=== PATIENT | female | born 1985 | race African-American/Black ===

== ENCOUNTER 2016-07-17 09:16 | Emergency (ER) | payer MEDICAID ==
[~2016-07-17] VITALS: Ht 160 cm; Wt 67.0 kg
[~2016-07-17 09:16] MED LIST: OXYC1SOL5 PO
[2016-07-17 09:18] VITALS: BP 114/67; PULSE 102; RESP 20; TEMP 97.8; O2SAT 97
--- NOTE | 2016-07-17 10:34 | PD ---
HPI Chief Complaint: Record Filing Clerk Problem/Complaint Time Seen by Provider: 10:06 Travel History International Travel<30 days: No Contact w/Intl Traveler<30days: No Traveled to known affect area: No History of Present Illness HPI Healthy 31-year-old female here with complaint of vaginal discharge. For the last week patient has had increasing vaginal discharge with a slight amount of discomfort within the pelvis. She denies any urinary symptoms. No new sexual partners or high-risk sexual behavior. History of remote chlamydia, treated. She had a child vaginally delivered 5 months ago. Her menses are regular and she attributes this to Implanon. She has not taken any tests at home but does not believe she could be . PFSH Past Medical History Asthma: No Blood Disorders: No Anxiety: No Depression: No Heart Rhythm Problems: No Cancer: No Cardiovascular Problems: No High Cholesterol: No Chemotherapy: No Chest Pain: No Congestive Heart Failure: No COPD: No Diabetes: No Diminished Hearing: No Endocrine: No Gastrointestinal Disorders: Yes (HYPEREMESIS GRAVIDARUM) Genitourinary: No Hypertension: No Immune Disorder: No Implanted Vascular Access Dvce: No Musculoskeletal: Yes (SCOLIOSIS) Neurologic: No Psychiatric: No Reproductive: Yes (PID) Respiratory: No Immunizations Current: No Radiation Therapy: No Sleep Apnea: No Thyroid Disease: No Tetanus Vaccination: < 5 Years Influenza Vaccination: No ?: Not LMP: 07/03/16 Menopausal: No : 5 Para: 5 Miscarriage: 0 : 0 Past Surgical History Surgical History: No Previous Surgery Other Surgery: No Social History Alcohol Use: No Tobacco Use: Yes (1 pack per week) Substance Use: No Allergies-Medications (Allergen,Severity, Reaction): Coded Allergies: Penicillin (Verified Allergy, Severe, A CHILD, 07/17/16) Reported Meds & Prescriptions Reported Meds & Active Scripts Active No Active Prescriptions or Reported Medications Review of Systems Except as stated in HPI: all other systems reviewed are Neg Physical Exam Narrative GENERAL: Well-appearing female in no acute distress SKIN: Warm and dry. HEAD: Normocephalic. EYES: No scleral icterus. No injection or drainage. ENT: Mucous membranes pink and moist. NECK: Supple CARDIOVASCULAR: Regular rate and rhythm. RESPIRATORY: No accessory muscle use. GASTROINTESTINAL: Abdomen soft, non-tender, nondistended. GENITOURINARY: Normal external female genitalia. Speculum examination reveals physiologic appearing discharge without cervical erythema, no tenderness to palpation on bimanual exam MUSCULOSKELETAL: Normal gait NEUROLOGICAL: Awake and alert. Normal speech. PSYCHIATRIC: Appropriate mood and affect; insight and judgment normal. Data Data Last Documented VS Vital Signs Date Time Temp Pulse Resp B/P Pulse Ox O2 Delivery O2 Flow Rate FiO2 07/17/16 10:07 65 16 07/17/16 09:18 97.8 114/67 97 Room Air Orders Gc And Chlamydia Pcr (07/17/16 10:06) Wet Prep Profile (07/17/16 10:06) Urinalysis - C+S If Indicated (07/17/16 10:06) Ed Urine Pregnancytest Poc (07/17/16 10:06) Labs Laboratory Tests Test 07/17/16 10:22 Urine Color YELLOW Urine Turbidity HAZY Urine pH 5.5 Urine Specific [place] 1.020 Urine Protein NEG mg/dL Urine Glucose (UA) NEG mg/dL Urine Ketones NEG mg/dL Urine Occult Blood NEG Urine Nitrite NEG Urine Bilirubin NEG Urine Urobilinogen LESS THAN 2.0 MG/DL Urine Leukocyte Esterase TRACE Urine RBC LESS THAN 1 /hpf Urine WBC 1 /hpf Urine Squamous Epithelial 3 /hpf Cells Urine Bacteria RARE /hpf Urine Mucus FEW /lpf Microscopic Urinalysis Comment CULT NOT INDICATED Clue Cells (Wet Prep) PRESENT Vaginal Trichomonas (Wet Prep) NONE SEEN Vaginal Yeast (Wet Prep) NONE SEEN MDM Medical Decision Making Medical Screen Exam Complete: Yes Emergency Medical Condition: Yes Medical Record Reviewed: Yes Differential Diagnosis 31-year-old female here with one week of increasing vaginal discharge and pelvic discomfort. Differential includes UTI, , ectopic , Effexor transmitted infection, PID. Narrative Course Urine test was negative. GC and Chlamydia were sent but I would not empirically treat patient based on her symptoms and exam. Urinalysis, wet prep notable for bacterial vaginosis. Diagnosis Primary Impression: Bacterial vaginosis Referrals: Information Security Architect as needed Additional Instructions: Antibiotics as prescribed. Med/Other Pt SpecificInfo: Prescription(s) given Scripts Metronidazole (Flagyl)500 Mg [id number] Mg PO TID 7 Days Ref 0 Prov:China Dallas MD 07/17/16 Disposition: 01 DISCHARGE HOME Condition: Stable China Dallas MD Jul 17, 2016 10:34
[2016-07-17 10:54] LABS: BACTERIA, URINE RARE /hpf; BLOOD, URINE NEG (NEG); COMMENT (UR) CULT NOT INDICATED; CULTURE IF INDICATED CULT NOT INDICATED; GLUCOSE,URINE NEG (NEG); KETONE, URINE NEG (NEG); MUCUS URINE FEW /lpf (OCC); NITRITE,URINE NEG (NEG); PH, URINE 5.5 (5.0-8.5); SQUAMOUS EPITHELIAL CELL URINE 3 /hpf (0-5); URINE COLOR YELLOW (YELLW/STRAW)
[2016-07-17] MEDS ORDERED: METR-1 PO (11:21)
[2016-07-17 13:43] LABS: CHLAMYDIA PCR NOT DETECTED (NOT DETECT); NEISSERIA PCR NOT DETECTED (NOT DETECT)
== END 2016-07-17 12:04 | disposition home or self-care (01) ==
LOC: NEPA 09:16
DX: N76.0 Acute vaginitis (principal); R10.2 Pelvic and perineal pain; Z72.0 Tobacco use; Z87.39 Personal history of other diseases of the musculoskeletal system and connective tissue; Z87.42 Personal history of other diseases of the female genital tract
CPT/HCPCS: 81001; 84703; 87210; 87491; 87591; 99283

== ENCOUNTER 2016-09-19 01:18 | Emergency (ER) | payer MEDICAID ==
[~2016-09-19] VITALS: Ht 172.7 cm; Wt 60.0 kg
[~2016-09-19 01:18] MED LIST changes: +METR-1 PO; -OXYC1SOL5 PO
[2016-09-19 01:20] VITALS: BP 115/72; PULSE 97; RESP 16; TEMP 97.7; O2SAT 100
[2016-09-19] MEDS ORDERED: ORPHENADRINE INJ 60 MG/2 ML AMP IM ONE (01:30)
[2016-09-19] MEDS ORDERED: KETOROLAC TROMETHAMINE 60 MG/2 ML (IM) VIAL IM ONE (01:30)
[2016-09-19] MEDS ORDERED: ROBA500T PO (01:36)
[2016-09-19] MEDS ORDERED: IBUP-232 PO (01:36)
--- NOTE | 2016-09-19 01:36 | PD ---
HPI Chief Complaint: Injury Time Seen by Provider: 04:09 Travel History International Travel<30 days: No Contact w/Intl Traveler<30days: No Traveled to known affect area: No History of Present Illness HPI 31 year-old female no significant medical history presents to the emergency department for evaluation of right neck and shoulder pain after helping her boyfriend move a dryer yesterday. Pain is a constant, tight, ache. It is a 6 out of 10. Patient denies any injury. She did not fall. She denies focal deficits or weakness. Has not taken anything for her pain. She has no other symptoms to report. PFS Past Medical History Medical History: Denies Significant Hx Asthma: No Blood Disorders: No Anxiety: No Depression: No Heart Rhythm Problems: No Cancer: No Cardiovascular Problems: No High Cholesterol: No Chemotherapy: No Chest Pain: No Congestive Heart Failure: No COPD: No Diabetes: No Diminished Hearing: No Endocrine: No Gastrointestinal Disorders: Yes (HYPEREMESIS GRAVIDARUM) Genitourinary: No Hypertension: No Immune Disorder: No Implanted Vascular Access Dvce: No Musculoskeletal: Yes (SCOLIOSIS) Neurologic: No Psychiatric: No Reproductive: Yes (PID) Respiratory: No Immunizations Current: No Radiation Therapy: No Sleep Apnea: No Thyroid Disease: No Menopausal: No : 5 Para: 5 Miscarriage: 0 : 0 Past Surgical History Other Surgery: No Social History Alcohol Use: No Tobacco Use: Yes (1 pack per week) Substance Use: No Allergies-Medications (Allergen,Severity, Reaction): Coded Allergies: Penicillin (Verified Allergy, Severe, A CHILD, 09/19/16) Reported Meds & Prescriptions Reported Meds & Active Scripts Active Robaxin (Methocarbamol) 500 Mg Tab 500 Mg PO QID PRN Ibuprofen 600 Mg Tab 600 Mg PO Q8HR PRN Flagyl (Metronidazole) 500 Mg Tab 500 Mg PO TID 7 Days Review of Systems Except as stated in HPI: all other systems reviewed are Neg Physical Exam Narrative GENERAL: Well-nourished, well-developed female patient, ambulatory no acute distress patient. SKIN: Focused skin assessment warm/dry. HEAD: Normocephalic. EYES: No scleral icterus. No injection or drainage. NECK: Supple, trachea midline. No JVD or lymphadenopathy. No cervical spine tenderness. Tenderness elicited to palpation along the right trapezius musculature. CARDIOVASCULAR: Regular rate and rhythm without murmurs, gallops, or rubs. RESPIRATORY: Breath sounds equal bilaterally. No accessory muscle use. GASTROINTESTINAL: Abdomen soft, non-tender, nondistended. MUSCULOSKELETAL: No cyanosis, or edema. BACK: Nontender without obvious deformity. No CVA tenderness. Data Data Last Documented VS Vital Signs Date Time Temp Pulse Resp B/P Pulse Ox O2 Delivery O2 Flow Rate FiO2 09/19/16 01:20 97.7 97 16 115/72 100 Room Air Orders Ketorolac Inj (Toradol Inj) (09/19/16 01:30) Orphenadrine Inj (Norflex Inj) (09/19/16 01:30) Ibuprofen (Motrin) (09/19/16 01:45) Methocarbamol (Robaxin) (09/19/16 01:45) MDM Medical Decision Making Medical Screen Exam Complete: Yes Emergency Medical Condition: Yes Medical Record Reviewed: Yes Differential Diagnosis Muscle strain versus spasm versus discogenic pain versus radiculopathy Narrative Course 31 year-old female presents to emergency department for evaluation. Patient's history and physical are consistent with a muscle strain. She is counseled on care. She is encouraged to follow-up with the primary care provider and return immediately with any acute worsening of symptoms. Diagnosis Primary Impression: Muscle strain of scapular region Qualified Code: S46.911A - Muscle strain of scapular region, right, initial encounter Additional Impression: Cervical muscle strain Qualified Code: S16.1XXA - Cervical muscle strain, initial encounter Referrals: Primary Care Physician Patient Instructions: General Instructions, Muscle Strain (DC) Departure Forms: Tests/Procedures, Work Release Enter return to work date: September 21, 2016 Additional Instructions: Ice and/or warm moist heat may help to alleviate symptoms Follow-up with your primary care provider Return immediately with any acute worsening of symptoms Med/Other Pt SpecificInfo: Prescription(s) given Scripts Methocarbamol (Robaxin)500 Mg [id number] Mg PO QID PRN (MUSCLE SPASM) #20 TAB Ref 0 Prov:Melina Love 09/19/16 Ibuprofen 600 Mg [id number] Mg PO Q8HR PRN (PAIN) #30 TAB Ref 0 Prov:Melina Love 09/19/16 Disposition: 01 DISCHARGE HOME Condition: Stable Melina Love September 19, 2016 01:36
[2016-09-19] MEDS ORDERED: IBUPROFEN 800 MG TAB PO ONE (01:45)
[2016-09-19] MEDS ORDERED: METHOCARBAMOL 500 MG TAB PO ONE (01:45)
== END 2016-09-19 04:54 | disposition home or self-care (01) ==
LOC: NEPK 01:18
DX: S46.911A Strain of unspecified muscle, fascia and tendon at shoulder and upper arm level, right arm, initial encounter (principal); S16.1XXA Strain of muscle, fascia and tendon at neck level, initial encounter; X50.0XXA Overexertion from strenuous movement or load, initial encounter; Y93.9 Activity, unspecified; Y92.9 Unspecified place or not applicable; Y99.9 Unspecified external cause status
CPT/HCPCS: 99282

== ENCOUNTER 2017-05-22 21:04 | Emergency (ER) | payer MEDICAID ==
[~2017-05-22 21:04] MED LIST changes: +IBUP-232 PO; +ROBA500T PO
[2017-05-22 21:05] VITALS: BP 126/77; PULSE 116; RESP 16; TEMP 99.1; O2SAT 99
[2017-05-22] MEDS ORDERED: BUPIVACAINE/EPINEPHRINE 0.5% PF 10 ML VIAL EPIDURAL ONE (22:00)
[2017-05-22] MEDS ORDERED: CLINDAMYCIN 150 MG CAP PO ONE (22:00)
--- NOTE | 2017-05-22 22:06 | PD ---
HPI Chief Complaint: Oral / Dental Pain or Problem Time Seen by Provider: 21:53 Travel History International Travel<30 days: No Contact w/Intl Traveler<30days: No Traveled to known affect area: No History of Present Illness HPI 32-year-old black female presents to emergency department with complaints of dental pain. She states that over last 24 hours she's had increasing pain and swelling to her left upper maxilla in an area which she had a tooth decay and break off. Symptoms are moderate. No alleviating factors. Exacerbated by palpation showing PFSH Past Medical History Asthma: No Blood Disorders: No Anxiety: No Depression: No Heart Rhythm Problems: No Cancer: No Cardiovascular Problems: No High Cholesterol: No Chemotherapy: No Chest Pain: No Congestive Heart Failure: No COPD: No Diabetes: No Diminished Hearing: No Endocrine: No Gastrointestinal Disorders: Yes (HYPEREMESIS GRAVIDARUM) Genitourinary: No Hypertension: No Immune Disorder: No Implanted Vascular Access Dvce: No Musculoskeletal: Yes (SCOLIOSIS) Neurologic: No Psychiatric: No Reproductive: Yes (PID) Respiratory: No Immunizations Current: No Radiation Therapy: No Sleep Apnea: No Thyroid Disease: No ?: Not LMP: currently on cycle Menopausal: No : 5 Para: 5 Miscarriage: 0 : 0 Past Surgical History Other Surgery: No Social History Alcohol Use: No Tobacco Use: Yes (1 pack per week) Substance Use: No Allergies-Medications (Allergen,Severity, Reaction): Coded Allergies: penicillin G (Unverified Allergy, Severe, A CHILD, 12/26/16) Reported Meds & Prescriptions Reported Meds & Active Scripts Active Robaxin (Methocarbamol) 500 Mg Tab 500 Mg PO QID PRN Ibuprofen 600 Mg Tab 600 Mg PO Q8HR PRN Flagyl (Metronidazole) 500 Mg Tab 500 Mg PO TID 7 Days Review of Systems General / Constitutional: No: Fever Eyes: No: Visual changes HENT: Positive: Dental Difficulties, No: Headaches, Gingival Bleeding, Ear Discharge, Earache Cardiovascular: No: Chest Pain or Discomfort Respiratory: No: Shortness of Breath Gastrointestinal: No: Abdominal Pain Genitourinary: No: Dysuria Musculoskeletal: No: Pain Skin: No Rash Neurologic: No: Weakness Psychiatric: No: Depression Endocrine: No: Polydipsia Hematologic/Lymphatic: No: Easy Bruising Physical Exam Narrative GENERAL: Well-developed, well-nourished in no acute distress. Nontoxic appearing. HEAD: Normocephalic, atraumatic. EYES: Pupils equal round and reactive. Extraocular motions intact. No scleral icterus. No injection or drainage. ENT: TMs clear without erythema. The external auditory canals clear. Nose: clear . Posterior pharynx is pink and moist. No tonsillar edema or exudate. Uvula midline. Airway patent. Tooth #13 is decayed to the gumline. There is a developing apical abscess noted on the buccal mucosa. NECK: Trachea midline.Supple, nontender, moves head freely. No central bony tenderness or spasm. CARDIOVASCULAR: Regular rate and rhythm without murmurs, gallops, or rubs. RESPIRATORY: Clear to auscultation. Breath sounds equal bilaterally. No wheezes , rales, or rhonchi. GASTROINTESTINAL: Abdomen soft, non-tender, nondistended. No hepato-splenomegaly , or palpable masses. No guarding. EXTREMITIES: No clubbing, cyanosis, or edema. No joint tenderness, effusion, or edema noted. BACK: Nontender without deformity or crepitance. No flank tenderness. Data Data Last Documented VS Vital Signs Date Time Temp Pulse Resp B/P (MAP) Pulse Ox O2 Delivery O2 Flow Rate FiO2 05/22/17 21:05 99.1 116 16 126/77 (93) 99 Orders Orders Clindamycin (Cleocin) (05/22/17 22:00) Bupivacaine-Epi Pf 0.5% Inj (Sensorcaine (05/22/17 22:00) MDM Medical Decision Making Medical Screen Exam Complete: Yes Emergency Medical Condition: Yes Medical Record Reviewed: Yes Differential Diagnosis MDM: Moderate Differential diagnoses: Dental abscess, dental caries, osteitis, cellulitis Narrative Course Patient is given clindamycin 300 mg by mouth and a dental block with 0.5% Marcaine with epinephrine Diagnosis Primary Impression: Dental abscess Patient Instructions: General Instructions Additional Instructions: Rest. [place] gargles. [place] oil on cotton balls. Clindamycin and Lortab. 3 Advil every 6 hours. follow-up with a dentist as soon as possible. And return to the ER if any problems. Med/Other Pt SpecificInfo: Prescription(s) given Disposition: 01 DISCHARGE HOME Condition: Stable Poli Ho May 22, 2017 22:06
[2017-05-22] MEDS ORDERED: CLIN150 PO (22:08)
[2017-05-22] MEDS ORDERED: NORC5TAB PO (22:08)
[2017-05-22] MEDS ORDERED: BUPIVACAINE/EPINEPHRINE 0.5% PF 10 ML VIAL NERV BLOCK ONE (22:15)
== END 2017-05-22 23:26 | disposition home or self-care (01) ==
LOC: NEPK 21:04
DX: K02.9 Dental caries, unspecified (principal); K04.7 Periapical abscess without sinus; Z72.0 Tobacco use
CPT/HCPCS: 99283

== ENCOUNTER 2017-05-23 22:55 | Inpatient (IN) | payer MEDICAID ==
[~2017-05-23] VITALS: Ht 160 cm; Wt 73.0 kg
[~2017-05-23 22:55] MED LIST changes: +CLIN150 PO; +NORC5TAB PO
[2017-05-23 22:56] VITALS: BP 146/80; PULSE 118; RESP 16; TEMP 99.5; O2SAT 98
[2017-05-24 01:09] VITALS: PULSE 101; RESP 18; O2SAT 99
[2017-05-24] MEDS ORDERED: CLINDAMYCIN 600 MG/NS PREMIX 50 ML IV ONE (01:45)
[2017-05-24] MEDS ORDERED: DEXAMETHASONE SOD PHOS 20 MG/5 ML VIAL IV PUSH ONE (01:45)
[2017-05-24] MEDS ORDERED: SODIUM CHLOR 0.9% 1000 ML INJ 1,000 ML IV ONE (01:45)
--- NOTE | 2017-05-24 01:47 | PD ---
HPI Chief Complaint: Oral / Dental Pain or Problem Time Seen by Provider: 01:12 Travel History International Travel<30 days: No Contact w/Intl Traveler<30days: No Traveled to known affect area: No History of Present Illness HPI 32-year-old black female returns to the ER after being seen by me yesterday for dental abscess. She states that she is taking her clindamycin but she has had increasing pain and swelling of the left face. She denies any fever chills. No nausea vomiting. He states the pain is moderate . She was concerned regarding the increased swelling. She denies any difficulty swallowing. No shortness of breath or wheezing. No alleviating factors. PFSH Past Medical History Medical History: Denies Significant Hx Asthma: No Blood Disorders: No Anxiety: No Depression: No Heart Rhythm Problems: No Cancer: No Cardiovascular Problems: No High Cholesterol: No Chemotherapy: No Chest Pain: No Congestive Heart Failure: No COPD: No Diabetes: No Diminished Hearing: No Endocrine: No Gastrointestinal Disorders: Yes (HYPEREMESIS GRAVIDARUM) Genitourinary: No Hypertension: No Immune Disorder: No Implanted Vascular Access Dvce: No Musculoskeletal: Yes (SCOLIOSIS) Neurologic: No Psychiatric: No Reproductive: Yes (PID) Respiratory: No Immunizations Current: No Radiation Therapy: No Sleep Apnea: No Thyroid Disease: No ?: Not Menopausal: No : 5 Para: 5 Miscarriage: 0 : 0 Past Surgical History Surgical History: No Previous Surgery Other Surgery: No Social History Alcohol Use: No Tobacco Use: Yes (1 pack per week) Substance Use: No Allergies-Medications (Allergen,Severity, Reaction): Coded Allergies: penicillin G (Unverified Allergy, Severe, A CHILD, 05/24/17) Reported Meds & Prescriptions Reported Meds & Active Scripts Active [place] (Hydrocodone-Acetaminophen) 5 Mg-325 Mg Tab 1 Tab PO Q6H PRN Cleocin (Clindamycin HCl) 150 Mg Cap 300 Mg PO Q6H 10 Days Robaxin (Methocarbamol) 500 Mg Tab 500 Mg PO QID PRN Ibuprofen 600 Mg Tab 600 Mg PO Q8HR PRN Flagyl (Metronidazole) 500 Mg Tab 500 Mg PO TID 7 Days Review of Systems General / Constitutional: No: Fever Eyes: No: Visual changes HENT: Positive: Gingival Bleeding, Dental Difficulties, Earache, Other (left facial swelling), No: Headaches, Sore Throat, Neck Pain, Masses Cardiovascular: No: Chest Pain or Discomfort Respiratory: No: Shortness of Breath Gastrointestinal: No: Abdominal Pain Genitourinary: No: Dysuria Musculoskeletal: No: Pain Skin: No Rash Neurologic: No: Weakness Psychiatric: No: Depression Endocrine: No: Polydipsia Hematologic/Lymphatic: No: Easy Bruising Physical Exam Narrative GENERAL: Well-developed, well-nourished in no apparent distress. Nontoxic appearing. HEAD: Patient has swelling of the left cheek/maxilla and the area for dental abscess. EYES: Pupils equal round and reactive. Extraocular motions intact. No scleral icterus. No injection or drainage. ENT: Nose clear. Throat without erythema, tonsillar hypertrophy or exudate. Uvula midline. Airway patent. Patient has a dental abscess to tooth #13. She has gingival erythema, edema. NECK: Trachea midline. Supple, nontender, moves head freely. No central bony tenderness or spasm. CARDIOVASCULAR: Regular rate and rhythm without murmurs, gallops, or rubs. RESPIRATORY: Clear to auscultation. Breath sounds equal bilaterally. No wheezes , rales, or rhonchi. GASTROINTESTINAL: Abdomen soft, non-tender, nondistended. No hepato-splenomegaly , or palpable masses. No guarding. EXTREMITIES: No clubbing, cyanosis, or edema. No joint tenderness. BACK: Nontender without deformity. No flank tenderness. NEUROLOGICAL: Awake, alert and oriented x 3 .Cranial nerves grossly intact. Motor and sensory grossly within normal limits. Normal speech. Data Data Last Documented VS Vital Signs Date Time Temp Pulse Resp B/P (MAP) Pulse Ox O2 Delivery O2 Flow Rate FiO2 05/24/17 01:09 101 18 99 Room Air 05/23/17 22:56 99.5 Orders Orders Iv Access Insert/Monitor (05/24/17 01:34) Sodium Chlor 0.9% 1000 Ml Inj (Ns 1000 M (05/24/17 01:45) Clindamycin 600 Mg/Ns Premix (Cleocin 60 (05/24/17 01:45) Dexamethasone Inj (Decadron Inj) (05/24/17 01:45) Complete Blood Count With Diff (05/24/17 03:55) Basic Metabolic Panel (Bmp) (05/24/17 03:55) Oxycodone-Acetamin 5-325 Mg (Percocet (05/24/17 04:00) MDM Medical Decision Making Medical Screen Exam Complete: Yes Emergency Medical Condition: Yes Medical Record Reviewed: Yes Differential Diagnosis MDM: Moderate Differential diagnoses: Dental abscess, dental caries, osteitis, cellulitis Narrative Course Appears the patient developing some secondary facial cellulitis secondary to her dental abscess. IV access is obtained. She is given clindamycin 600 mg IV , normal saline 1 L bolus, and Decadron 10 mg IV. She is also given a second dental block with 0.5% Marcaine with epinephrine. I will perform a local IND in hopes to improve her abscess and facial cellulitis. Incision and drainage did not reveal any obvious abscess. The patient has moderate swelling of the left face consistent with facial cellulitis secondary to her dental abscess. I've discussed the case with who has agreed to admit the patient on observation status for IV antibiotics. Patient is given Percocet 5 mg by mouth for pain. This is dental abscess with facial cellulitis Procedures Procedure Narrative Incision and drainage dental abscess: Patient is given 0.5% Marcaine. A stab incision is made to the pupil mucosa of the tooth. A small amount of blood but no purulent drainage identified. Patient tolerated procedure well. Diagnosis Primary Impression: dental abscess with facial cellulitis Condition: Stable Poli Ho May 24, 2017 01:46
[2017-05-24] MEDS ORDERED: oxyCODONE/ACETAMINOPHEN 5 MG/325 MG TAB PO ONE (04:00)
[2017-05-24] MEDS ORDERED: MAGNESIUM HYDROXIDE SUSP 30 ML CUP PO PRN (04:45)
[2017-05-24] MEDS ORDERED: BISACODYL 10 MG SUPP RECTAL PRN (04:45)
[2017-05-24] MEDS ORDERED: NALOXONE HCL 0.4 MG/ML AMP IV PUSH PRN (04:45)
[2017-05-24] MEDS ORDERED: LACTULOSE SYRUP 20 GM/30 ML CUP PO PRN (04:45)
[2017-05-24] MEDS ORDERED: SODIUM CHLORIDE 0.9% FLUSH 10 ML FLUSH IV FLUSH PRN (04:45)
[2017-05-24] MEDS ORDERED: SENNOSIDES 8.6 MG TAB PO PRN (04:45)
[2017-05-24 04:46] LABS: AUTOMATED NEUTROPHIL # 4.7 TH/MM3 (1.8-7.7); BASOPHIL % 0.2 % (0.0-2.0); EOSINOPHIL % 0.3 % (0.0-4.0); HEMATOCRIT 24.5 % (35.0-46.0); HEMOGLOBIN 8.2 GM/DL (11.6-15.3); LYMPH % 9.4 % (9.0-44.0); LYMPHOCYTE # 0.5 TH/MM3 (1.0-4.8); MEAN CELL VOLUME 66.7 FL (80.0-100.0); MEAN CORPUSCULAR HEMOGLOBIN 22.3 PG (27.0-34.0); MEAN CORPUSCULAR HGB CONC 33.5 % (32.0-36.0); MEAN PLATELET VOLUME 6.9 FL (7.0-11.0); MONO % 6.3 % (0.0-8.0); MONOCYTE # 0.4 TH/MM3 (0-0.9); NEUT % 83.8 % (16.0-70.0); PLATELET COUNT 227 TH/MM3 (150-450); RED BLOOD COUNT 3.67 MIL/MM3 (4.00-5.30); RED CELL DISTRIBUTION WIDTH 16.3 % (11.6-17.2); WHITE BLOOD COUNT 5.6 TH/MM3 (4.0-11.0)
[2017-05-24 05:07] LABS: BICARBONATE 22.8 MEQ/L (21.0-32.0); CALCIUM 7.1 MG/DL (8.5-10.1); CREATININE 0.53 MG/DL (0.50-1.00)
[2017-05-24 05:56] LABS: TOTAL PROTEIN 6.5 GM/DL (6.4-8.2)
[2017-05-24 06:00] LABS: CALCIUM-PROTEIN CORRECTED 7.4 MG/DL (8.5-10.1)
[2017-05-24] MEDS ORDERED: POTASSIUM CHLORIDE 20 MEQ CONTROLLED RELEASE TAB PO ONE ×2 (06:00)
[2017-05-24] MEDS ORDERED: CALCIUM GLUCONATE INJ 1 GM in DEXTROSE 5% IN WATER 100ML INJ 100 ML IV ONE ×2 (06:00)
[2017-05-24] MEDS ORDERED: POTASSIUM CHLOR 20 MEQ PREMIX 100 ML IV ONE (06:00)
[2017-05-24 06:30] VITALS: BP 128/73; PULSE 106; RESP 18; O2SAT 100
[2017-05-24] MEDS ORDERED: CALCIUM CARBONATE 500 MG CHEWABLE TAB CHEW ONE (06:45)
[2017-05-24] MEDS: POTASSIUM CHLOR 20 MEQ PREMIX 100 ML IV SCH ×2 (08:03→10:09)
[2017-05-24] MEDS: DOCUSATE SODIUM 50 MG/SENNA 8.6 MG TAB PO SCH ×2 (09:00→20:38)
[2017-05-24] MEDS: ENOXAPARIN SODIUM 40 MG/0.4 ML SYRINGE SQ SCH (09:17)
[2017-05-24] MEDS: MORPHINE SULFATE 2 MG/ML INJ IV PRN ×4 (09:18→20:38)
[2017-05-24] MEDS ORDERED: CLINDAMYCIN 900 MG/DEX PREMIX 50 ML IV SCH (11:00)
[2017-05-24 12:15] VITALS: BP 118/71; PULSE 100; RESP 18; O2SAT 100
[2017-05-24] MEDS: SODIUM CHLORIDE 0.9% FLUSH 10 ML FLUSH IV FLUSH SCH ×2 (12:15→20:37)
--- NOTE | 2017-05-24 14:01 | HHI.HP ---
[facility] Service [facility] Primary Care Physician EBONI Caldwell Admission Diagnosis dental abscess with facial cellulitis Diagnoses: Chief Complaint: Left cheek swelling and pain Travel History International Travel<30 Days: No Contact w/Intl Traveler <30 Da: No Traveled to Known Affected Are: No History of Present Illness 5 years old female returned back to ED after she was seen yesterday for dental at patient was prescribed antibiotic however the swelling and the pain it still increasing without improvement. Patient has been taking clindamycin by mouth. I saw the patient she was resting in bed calmly stated pain medication is helping, she feels hungry she wants to eat, patient deniedH/ O dental cavities, she was in the process to see a dentist in the community clinic. Currently no chest anal fever chills no nausea vomiting abdominal pain diarrhea or constipation, also no difficulty swallowing Review of Systems All systems reviewed and was positive for what is mentioned in history of present illness otherwise negative Past Family Social History Past Medical History Hyperemesis gravidarum Scoliosis PID Past Surgical History No significant surgery reported Allergies: Coded Allergies: penicillin G (Unverified Allergy, Severe, A CHILD, 05/24/17) Family History Review with the patient,not aware of significant medical history runs in his family Social History Smoke few cigarettes a day no alcohol or illicit drug abuse Physical Exam Vital Signs Vital Signs Date Time Temp Pulse Resp B/P (MAP) Pulse Ox O2 Delivery O2 Flow Rate FiO2 05/24/17 12:25 18 05/24/17 12:15 100 18 118/71 (87) 100 Room Air 05/24/17 06:30 106 18 128/73 (91) 100 05/24/17 01:09 101 18 99 Room Air 05/23/17 22:56 99.5 118 16 146/80 (102) 98 Room Air Physical Exam GENERAL: This is a well-nourished, well-developed patient, in no apparent distress. SKIN: No rashes, ecchymoses or lesions. Cool and dry. HEAD: Atraumatic. Normocephalic. No temporal or scalp tenderness. EYES: Pupils equal round and reactive. Extraocular motions intact. No scleral icterus. No injection or drainage. ENT: Nose without bleeding, left cheek swelling and tenderness NECK: Trachea midline. No JVD or lymphadenopathy. Supple, nontender, no meningeal signs. CARDIOVASCULAR: Regular rate and rhythm without murmurs, gallops, or rubs. RESPIRATORY: Clear to auscultation. Breath sounds equal bilaterally. No wheezes , rales, or rhonchi. GASTROINTESTINAL: Abdomen soft, non-tender, nondistended. No hepato-splenomegaly , or palpable masses. No guarding. MUSCULOSKELETAL: Extremities without clubbing, cyanosis, or edema. No joint tenderness, effusion, or edema noted. No calf tenderness. Negative Homans sign bilaterally. NEUROLOGICAL: Awake and alert. Cranial nerves II through XII intact. Motor and sensory grossly within normal limits. Five out of 5 muscle strength in all muscle groups. Normal speech. Laboratory Laboratory Tests Test 05/24/17 04:10 White Blood Count 5.6 Red Blood Count 3.67 Hemoglobin 8.2 Hematocrit 24.5 Mean Corpuscular Volume 66.7 Mean Corpuscular Hemoglobin 22.3 Mean Corpuscular Hemoglobin Concent 33.5 Red Cell Distribution Width 16.3 Platelet Count 227 Mean Platelet Volume 6.9 Neutrophils (%) (Auto) 83.8 Lymphocytes (%) (Auto) 9.4 Monocytes (%) (Auto) 6.3 Eosinophils (%) (Auto) 0.3 Basophils (%) (Auto) 0.2 Neutrophils # (Auto) 4.7 Lymphocytes # (Auto) 0.5 Monocytes # (Auto) 0.4 Eosinophils # (Auto) 0.0 Basophils # (Auto) 0.0 CBC Comment DIFF FINAL Differential Comment Blood Urea Nitrogen 6 Creatinine 0.53 Random Glucose 91 Total Protein 6.5 Calcium Level 7.1 Sodium Level 139 Potassium Level 2.9 Chloride Level 108 Carbon Dioxide Level 22.8 Anion Gap 8 Estimat Glomerular Filtration Rate 164 Protein Corrected Calcium 7.4 Magnesium Level 1.3 Result Diagram: 05/24/1740905/24/17409 Caprini VTE Risk Assessment Caprini VTE Risk Assessment: Mod/High Risk (score >= 2) Caprini Risk Assessment Model Point Value = 1 Point Value = 2 Point Value = 3 Point Value = 5 Age 41-60 Minor surgery BMI > 25 kg/m2 Swollen legs Varicose veins or History of unexplained or recurrent spontaneous Oral contraceptives or hormone replacement Sepsis (< 1 month) Serious lung disease, including pneumonia (< 1 month) Abnormal pulmonary function Acute myocardial infarction Congestive heart failure (< 1 month) History of inflammatory bowel disease Medical patient at bed rest Age 61-74 Arthroscopic surgery Major open surgery (> 45 min) Laparoscopic surgery (> 45 min) Malignancy Confined to bed (> 72 hours) Immobilizing plaster cast Central venous access Age >= 75 History of VTE Family history of VTE Factor V Leiden Prothrombin [id number] Lupus anticoagulant Anticardiolipin antibodies Elevated serum homocysteine Heparin-induced thrombocytopenia Other congenital or acquired thrombophilia Stroke (< 1 month) Elective arthroplasty Hip, pelvis, or leg fracture Acute spinal cord injury (< 1 month) Prophylaxis Regimen Total Risk Factor Score Risk Level Prophylaxis Regimen 0-1 Low Early ambulation 2 Moderate Order ONE of the following: *Sequential Compression Device (SCD) *Heparin 5000 units SQ BID 3-4 Higher Order ONE of the following medications: *Heparin 5000 units SQ TID *Enoxaparin/Lovenox 40 mg SQ daily (WT < 150 kg, CrCl > 30 mL/min) *Enoxaparin/Lovenox 30 mg SQ daily (WT < 150 kg, CrCl > 10-29 mL/min) *Enoxaparin/Lovenox 30 mg SQ BID (WT < 150 kg, CrCl > 30 mL/min) AND/OR *Sequential Compression Device (SCD) 5 or more Highest Order ONE of the following medications: *Heparin 5000 units SQ TID (Preferred with Epidurals) *Enoxaparin/Lovenox 40 mg SQ daily (WT < 150 kg, CrCl > 30 mL/min) *Enoxaparin/Lovenox 30 mg SQ daily (WT < 150 kg, CrCl > 10-29 mL/min) *Enoxaparin/Lovenox 30 mg SQ BID (WT < 150 kg, CrCl > 30 mL/min) AND *Sequential Compression Device (SCD) Assessment and Plan Assessment and Plan 32 years old female admitted with Left dental abscess: Failed outpatient antibiotic, will place on clindamycin iv , monitor improvement, pain management, maxillofacial surgeon consulted however no one is available in-house, consider transferring to another facility if no improvement. Patient on renal, will give pure Diet with full liquid Discussed Condition With Patient Mireille Early MD May 24, 2017 14:01
[2017-05-24 16:24] VITALS: BP 118/73; PULSE 98; RESP 20; TEMP 99; O2SAT 100
[2017-05-24] MEDS: CLINDAMYCIN 900 MG/NS PREMIX 50 ML IV SCH ×2 (18:30→23:58)
[2017-05-24 20:34] VITALS: BP 119/73; PULSE 107; RESP 18; TEMP 98.2; O2SAT 100
[2017-05-24] MEDS: ACETAMINOPHEN/HYDROcodone 325 MG/7.5 MG TAB PO PRN (23:59)
[2017-05-25 00:26] VITALS: BP 103/58; PULSE 101; RESP 18; TEMP 98.6; O2SAT 99
[2017-05-25] MEDS: CLINDAMYCIN 900 MG/NS PREMIX 50 ML IV SCH ×3 (05:16→18:11)
[2017-05-25] MEDS: ACETAMINOPHEN/HYDROcodone 325 MG/7.5 MG TAB PO PRN ×2 (05:16→09:39)
[2017-05-25 05:40] VITALS: BP 108/59; PULSE 92; RESP 18; TEMP 98.3; O2SAT 100
[2017-05-25 08:16] VITALS: BP 111/57; PULSE 84; RESP 20; TEMP 98.6; O2SAT 96
[2017-05-25] MEDS ORDERED: METHOCARBAMOL 500 MG TAB PO PRN (08:45)
[2017-05-25] MEDS ORDERED: ACETAMINOPHEN/HYDROcodone 325 MG/10 MG TAB PO PRN (08:45)
[2017-05-25] MEDS: DOCUSATE SODIUM 50 MG/SENNA 8.6 MG TAB PO SCH ×2 (09:00→20:52)
[2017-05-25] MEDS: ENOXAPARIN SODIUM 40 MG/0.4 ML SYRINGE SQ SCH (09:40)
[2017-05-25] MEDS: SODIUM CHLORIDE 0.9% FLUSH 10 ML FLUSH IV FLUSH SCH ×2 (09:40→20:51)
[2017-05-25] MEDS ORDERED: PNEUMOCOCCAL POLYVALENT INJ 25 MCG/0.5 ML SYR IM ONE (10:00)
[2017-05-25] MEDS ORDERED: INFLUENZA VIRUS VACCINE (QUADRIVALENT) 0.5 ML SYR IM ONE (10:00)
[2017-05-25 11:48] VITALS: BP 110/66; PULSE 108; RESP 20; TEMP 98.7; O2SAT 100
[2017-05-25 11:56] LABS: AUTOMATED NEUTROPHIL # 5.1 TH/MM3 (1.8-7.7); BASOPHIL % 0.2 % (0.0-2.0); EOSINOPHIL % 0.3 % (0.0-4.0); HEMATOCRIT 28.4 % (35.0-46.0); HEMOGLOBIN 9.6 GM/DL (11.6-15.3); LYMPH % 13.7 % (9.0-44.0); LYMPHOCYTE # 0.9 TH/MM3 (1.0-4.8); MEAN CELL VOLUME 66.8 FL (80.0-100.0); MEAN CORPUSCULAR HEMOGLOBIN 22.5 PG (27.0-34.0); MEAN CORPUSCULAR HGB CONC 33.7 % (32.0-36.0); MEAN PLATELET VOLUME 6.6 FL (7.0-11.0); MONO % 7.5 % (0.0-8.0); MONOCYTE # 0.5 TH/MM3 (0-0.9); NEUT % 78.3 % (16.0-70.0); PLATELET COUNT 263 TH/MM3 (150-450); RED BLOOD COUNT 4.26 MIL/MM3 (4.00-5.30); RED CELL DISTRIBUTION WIDTH 16.7 % (11.6-17.2); WHITE BLOOD COUNT 6.5 TH/MM3 (4.0-11.0)
[2017-05-25 12:33] LABS: BICARBONATE 27.3 MEQ/L (21.0-32.0); CALCIUM 8.2 MG/DL (8.5-10.1); CREATININE 0.72 MG/DL (0.50-1.00); MAGNESIUM 1.6 MG/DL (1.5-2.5)
--- NOTE | 2017-05-25 12:35 | HHI.PR ---
Subjective Remarks Follow-up left facial swelling. States swelling has not improved in pain is not well controlled. Discussed with RN Objective Vitals Vital Signs Date Time Temp Pulse Resp B/P (MAP) Pulse Ox O2 Delivery O2 Flow Rate FiO2 05/25/17 11:48 98.7 108 20 110/66 (81) 100 05/25/17 08:16 98.6 84 20 111/57 (75) 96 05/25/17 05:40 98.3 92 18 108/59 (75) 100 05/25/17 00:26 98.6 101 18 103/58 (73) 99 05/24/17 20:34 98.2 107 18 119/73 (88) 100 05/24/17 16:24 99.0 98 20 118/73 (88) 100 05/24/17 15:04 (87) I/O 05/24/17 05/24/17 05/24/17 05/25/17 05/25/17 05/25/17 07:00 15:00 23:00 07:00 15:00 23:00 Intake Total 110 ml Balance 110 ml Intake IV Total 110 ml Result Diagram: 05/25/17 1140 05/24/17 0410 Objective Remarks GENERAL: This is a well-nourished, well-developed patient, in no apparent distress. SKIN: No rashes, ecchymoses or lesions. Cool and dry. HEAD: Atraumatic. Normocephalic. No temporal or scalp tenderness. EYES: Pupils equal round and reactive. Extraocular motions intact. No scleral icterus. No injection or drainage. ENT: Nose without bleeding, left cheek swelling and tenderness. Also tender left upper molar NECK: Trachea midline. No JVD or lymphadenopathy. Supple, nontender, no meningeal signs. CARDIOVASCULAR: Regular rate and rhythm without murmurs, gallops, or rubs. RESPIRATORY: Clear to auscultation. Breath sounds equal bilaterally. No wheezes , rales, or rhonchi. GASTROINTESTINAL: Abdomen soft, non-tender, nondistended.No guarding. MUSCULOSKELETAL: Extremities without clubbing, cyanosis, or edema. No joint tenderness, effusion, or edema noted. No calf tenderness. Negative Homans sign bilaterally. NEUROLOGICAL: Awake and alert. Cranial nerves II through XII intact. Motor and sensory grossly within normal limits. Five out of 5 muscle strength in all muscle groups. Normal speech. A/P Problem List: (1) Dental abscess ICD Code: K04.7 - Periapical abscess without sinus Status: Acute Assessment and Plan 32 years old female admitted with Left facial swelling. Imaging study shows likely bony infectious complication associated with posterior molar tooth of the left maxilla with small adjacent periosteal or subperiosteal fluid collection and surrounding cellulitic change. Continue IV clindamycin and pain management switched to Percocet and increase IV morphine for better control. Add IV steroids and ice. We'll discuss with OMFS since no one is steam conditioner operator today. Consider ID consult Hypokalemia and hypomagnesemia. Replace with 50 mEq potassium by mouth 2 and magnesium oxide 400 mg by mouth 1. Repeat BMP and mag in the morning Low risk for DVT Discharge Planning Not ready for discharge still requiring IV antibiotic and may need surgical intervention Bello Solis MD May 25, 2017 12:34
[2017-05-25] MEDS ORDERED: ACETAMINOPHEN 325 MG TAB PO PRN (12:45)
[2017-05-25] MEDS ORDERED: oxyCODONE/ACETAMINOPHEN 5 MG/325 MG TAB PO PRN (12:45)
[2017-05-25] MEDS ORDERED: NALOXONE HCL 0.4 MG/ML AMP IV PUSH PRN (12:45)
[2017-05-25] MEDS ORDERED: methylPREDNISolone SOD SUCC 125 MG/2 ML VIAL IV PUSH ONE (13:00)
[2017-05-25] MEDS: oxyCODONE/ACETAMINOPHEN 10 MG/325 MG TAB PO PRN ×2 (13:06→20:48)
[2017-05-25] MEDS ORDERED: MAGNESIUM OXIDE 400 MG TAB PO ONE (13:30)
[2017-05-25] MEDS ORDERED: MORPHINE SULFATE 2 MG/ML INJ IV PRN (14:15)
[2017-05-25] MEDS ORDERED: IOHEXOL 350 MG/ML 10 ML VIAL (for RAD DIAG) IVCONTRAST ONE (14:47)
--- NOTE | 2017-05-25 15:15 | RADRPT ---
EXAM DATE/TIME: 05/25/2017 14:30 [place] COMPARISON: No previous studies available for comparison. INDICATIONS : Dental abcess with facial swelling. IV CONTRAST: 70 cc Omnipaque 350 (iohexol) IV RADIATION DOSE: 56.76 CTDIvol (mGy) MEDICAL HISTORY : None SURGICAL HISTORY : None. ENCOUNTER: Initial ACUITY: 3 days PAIN SCALE: 1/10 LOCATION: Left facial TECHNIQUE: Volumetric scanning of the facial bones was performed. Using automated exposure control and adjustme nt of the mA and/or kV according to patient size, radiation dose was kept as low as reasonably achiev able to obtain optimal diagnostic quality images. DICOM format image data is available electronicall y for review and comparison. FINDINGS: There is bone loss surrounding the tooth roots of a posterior molar tooth of the left maxilla area ad jacent to the lateral cortex of the maxilla adjacent to this region, a thin crescentic area of low de nsity is present, surrounded by moderate enhancement and induration. The appearance of would be consi stent with small periosteal or subperiosteal fluid collection and surrounding cellulitis. There is no drainable fluid collection identified. There is a coastal thickening and fluid in the ipsilateral ma xillary antrum which may be associated with or sympathetic to the above-described process. The sinuse s or elsewhere clear and The bony elements are otherwise intact and unremarkable with no evidence of fracture or destructive c hange. CONCLUSION: Likely bony infectious complication associated with a posterior molar tooth of the left maxilla with small adjacent periosteal or subperiosteal fluid collection and surrounding cellulitic change as desc ribed above. Jaylan Mahajan MD on May 25, 2017 at 14:56 Board Certified Radiologist. This report was verified electronically.
[2017-05-25] MEDS: 1/2 NS + KCL 20 MEQ INJ 1,000 ML IV SCH (15:41)
[2017-05-25] MEDS: POTASSIUM CHLORIDE 25 MEQ EFFERVESCENT TAB PO SCH ×2 (15:42→20:49)
[2017-05-25 16:10] VITALS: BP 98/58; PULSE 105; RESP 20; TEMP 97.8; O2SAT 100
[2017-05-25 20:21] VITALS: BP 121/63; PULSE 111; RESP 18; TEMP 98.2; O2SAT 100
[2017-05-25] MEDS: methylPREDNISolone SOD SUCC 40 MG/1 ML VIAL IV PUSH SCH (20:50)
[2017-05-26] MEDS: CLINDAMYCIN 900 MG/NS PREMIX 50 ML IV SCH ×4 (00:36→18:16)
[2017-05-26 01:06] VITALS: BP 125/71; PULSE 91; RESP 18; TEMP 98.4; O2SAT 97
[2017-05-26] MEDS: oxyCODONE/ACETAMINOPHEN 10 MG/325 MG TAB PO PRN ×3 (03:45→19:06)
[2017-05-26 04:42] VITALS: BP 134/76; PULSE 82; RESP 18; TEMP 98.4; O2SAT 99
[2017-05-26] MEDS: methylPREDNISolone SOD SUCC 40 MG/1 ML VIAL IV PUSH SCH ×3 (05:37→22:45)
[2017-05-26 07:43] LABS: BICARBONATE 24.6 MEQ/L (21.0-32.0); CALCIUM 7.8 MG/DL (8.5-10.1); CREATININE 0.56 MG/DL (0.50-1.00); MAGNESIUM 1.7 MG/DL (1.5-2.5)
[2017-05-26] MEDS: POTASSIUM CHLORIDE 25 MEQ EFFERVESCENT TAB PO SCH ×2 (08:45→22:40)
[2017-05-26] MEDS: DOCUSATE SODIUM 50 MG/SENNA 8.6 MG TAB PO SCH ×2 (08:46→22:39)
[2017-05-26] MEDS: SODIUM CHLORIDE 0.9% FLUSH 10 ML FLUSH IV FLUSH SCH ×2 (08:46→22:45)
[2017-05-26 08:50] VITALS: BP 98/57; PULSE 85; RESP 18; TEMP 98.5; O2SAT 98
--- NOTE | 2017-05-26 11:17 | HHI.PR ---
Subjective Remarks Follow-up blood dental abscess. Improved swelling and pain. Tolerating by mouth. Objective Vitals Vital Signs Date Time Temp Pulse Resp B/P (MAP) Pulse Ox O2 Delivery O2 Flow Rate FiO2 05/26/17 08:50 98.5 85 18 98/57 (71) 98 05/26/17 04:42 98.4 82 18 134/76 (95) 99 05/26/17 01:06 98.4 91 18 125/71 (89) 97 05/25/17 20:21 98.2 111 18 121/63 (82) 100 05/25/17 16:10 97.8 105 20 98/58 (71) 100 05/25/17 11:48 98.7 108 20 110/66 (81) 100 I/O 05/25/17 05/25/17 05/25/17 05/26/17 05/26/17 05/26/17 07:00 15:00 23:00 07:00 15:00 23:00 Intake Total 1020 ml Balance 1020 ml Intake Oral 1020 ml # Voids 5 Result Diagram: 05/25/17 1140 05/26/17 0650 Imaging Last Impressions Maxillofacial CT 05/25/17 0000 Signed Impressions: Service Date/Time: Thursday, May 25, 2017 14:30 - CONCLUSION: Likely bony infectious complication associated with a posterior molar tooth of the left maxilla with small adjacent periosteal or subperiosteal fluid collection and surrounding cellulitic change as described above. Jaylan Mahajan MD Objective Remarks GENERAL: This is a well-nourished, well-developed patient, in no apparent distress. SKIN: No rashes, ecchymoses or lesions. Cool and dry. ENT: Nose without bleeding, left cheek with improving swelling and tenderness. Also tender left upper molar NECK: Trachea midline. No JVD or lymphadenopathy. Supple, nontender, no meningeal signs. CARDIOVASCULAR: Regular rate and rhythm without murmurs, gallops, or rubs. RESPIRATORY: Clear to auscultation. Breath sounds equal bilaterally. No wheezes , rales, or rhonchi. GASTROINTESTINAL: Abdomen soft, non-tender, nondistended.No guarding. MUSCULOSKELETAL: Extremities without clubbing, cyanosis, or edema. No joint tenderness, effusion, or edema noted. No calf tenderness. Negative Homans sign bilaterally. NEUROLOGICAL: Awake and alert. Cranial nerves II through XII intact. Motor and sensory grossly within normal limits. Five out of 5 muscle strength in all muscle groups. Normal speech. Procedures none A/P Problem List: (1) Dental abscess ICD Code: K04.7 - Periapical abscess without sinus Status: Acute Assessment and Plan 32 years old female admitted with Left facial swelling secondary to dental abscess with failed outpatient therapy. Imaging study shows likely bony infectious complication associated with posterior molar tooth of the left maxilla with small adjacent periosteal or subperiosteal fluid collection and surrounding cellulitic change. Improving. Continue IV clindamycin and pain management switched to Percocet and increase IV morphine for better control. Continue IV steroids and ice. Discussed with OMFS, once improved discharged home with antibiotic to have dental extraction outpatient. If worse transfer to another facility. Consider ID consult Hypokalemia and hypomagnesemia. Improved Hyperglycemia secondary to steroids. Monitor with ISS. Low risk for DVT Discharge Planning Not ready for discharge still requiring IV antibiotic and may need surgical intervention Bello Solis MD May 26, 2017 11:17
[2017-05-26] MEDS ORDERED: GLUCAGON 1 MG/ML VIAL OTHER PRN (11:30)
[2017-05-26] MEDS ORDERED: DEXTROSE 50% IN WATER 50 ML VIAL(D50) IV PUSH PRN (11:30)
[2017-05-26 12:00] VITALS: BP 114/62; PULSE 111; RESP 18; TEMP 98.5; O2SAT 100
[2017-05-26] MEDS: INSULIN ASPART SUPPLEMENTAL SCALE SQ SCH ×3 (12:00→21:00)
--- NOTE | 2017-05-26 13:48 | HHI.DCPOC ---
Discharge Care Plan Diagnosis: (1) Dental abscess Your Health Problems Are: Difficulty with ADL Exercise Tolerance Goals to Promote Your Health * To prevent worsening of your condition and complications * To maintain your health at the optimal level Directions to Meet Your Goals Take your medications as prescribed Follow your dietary instruction Follow activity as directed Keep your appointments as scheduled Take your immunizations and boosters as scheduled If your symptoms worsen call your PCP, if no PCP go to Urgent Care Center or Emergency Room Smoking is Dangerous to Your Health. Avoid second hand smoke Call the 24-hour hour crisis hotline for domestic abuse at Bello Solis MD May 26, 2017 13:48
[2017-05-26] MEDS: 1/2 NS + KCL 20 MEQ INJ 1,000 ML IV SCH (14:11)
[2017-05-26 16:00] VITALS: BP 121/69; PULSE 105; RESP 18; O2SAT 98
[2017-05-26] MEDS ORDERED: ONDANSETRON HCL 4 MG/2 ML VIAL IV PUSH PRN (16:00)
[2017-05-26 23:30] VITALS: BP 118/77; PULSE 100; RESP 16; TEMP 98.4; O2SAT 100
[2017-05-27] MEDS: CLINDAMYCIN 900 MG/NS PREMIX 50 ML IV SCH ×3 (00:18→12:00)
[2017-05-27] MEDS: oxyCODONE/ACETAMINOPHEN 10 MG/325 MG TAB PO PRN ×2 (01:32→07:16)
[2017-05-27] MEDS: methylPREDNISolone SOD SUCC 40 MG/1 ML VIAL IV PUSH SCH (05:00)
[2017-05-27] MEDS: INSULIN ASPART SUPPLEMENTAL SCALE SQ SCH ×2 (07:51→12:00)
[2017-05-27 08:00] VITALS: BP 117/69; PULSE 69; RESP 18; TEMP 98; O2SAT 98
[2017-05-27] MEDS: SODIUM CHLORIDE 0.9% FLUSH 10 ML FLUSH IV FLUSH SCH (09:00)
[2017-05-27] MEDS: DOCUSATE SODIUM 50 MG/SENNA 8.6 MG TAB PO SCH (09:00)
[2017-05-27] MEDS ORDERED: NORC5TAB PO (10:25)
--- NOTE | 2017-05-27 10:28 | HHI.DS ---
Discharge Summary Admission Date May 24, 2017 at 05:58 Discharge Date: May 27, 2017 Admitting Diagnosis dental abscess with facial cellulitis (1) Dental abscess ICD Code: K04.7 - Periapical abscess without sinus Diagnosis: Principal Status: Acute Procedures none Brief History - From Admission 5 years old female returned back to ED after she was seen yesterday for dental at patient was prescribed antibiotic however the swelling and the pain it still increasing without improvement. Patient has been taking clindamycin by mouth. I saw the patient she was resting in bed calmly stated pain medication is helping, she feels hungry she wants to eat, patient deniedH/ O dental cavities, she was in the process to see a dentist in the community clinic. Currently no chest anal fever chills no nausea vomiting abdominal pain diarrhea or constipation, also no difficulty swallowing CBC/BMP: 05/25/17 1140 05/26/17 0650 Significant Findings Laboratory Tests Test 05/25/17 11:40 05/26/17 06:50 Hemoglobin 9.6 GM/DL (11.6-15.3) Hematocrit 28.4 % (35.0-46.0) Mean Corpuscular Volume 66.8 FL (80.0-100.0) Mean Corpuscular Hemoglobin 22.5 PG (27.0-34.0) Mean Platelet Volume 6.6 FL (7.0-11.0) Neutrophils (%) (Auto) 78.3 % (16.0-70.0) Lymphocytes # (Auto) 0.9 TH/MM3 (1.0-4.8) Calcium Level 8.2 MG/DL (8.5-10.1) 7.8 MG/DL (8.5-10.1) Potassium Level 2.9 MEQ/L (3.5-5.1) Blood Urea Nitrogen 6 MG/DL (7-18) Random Glucose 125 MG/DL (74-106) Sodium Level 135 MEQ/L (136-145) Imaging Last Impressions Maxillofacial CT 05/25/17 0000 Signed Impressions: Service Date/Time: Felipe, May 25, 2017 14:30 - CONCLUSION: Likely bony infectious complication associated with a posterior molar tooth of the left maxilla with small adjacent periosteal or subperiosteal fluid collection and surrounding cellulitic change as described above. Jaylan Mahajan MD PE at Discharge GENERAL: This is a well-nourished, well-developed patient, in no apparent distress. SKIN: No rashes, ecchymoses or lesions. Cool and dry. ENT: Nose without bleeding, left cheek with improving swelling and tenderness. Also tender left upper molar NECK: Trachea midline. No JVD or lymphadenopathy. Supple, nontender, no meningeal signs. CARDIOVASCULAR: Regular rate and rhythm without murmurs, gallops, or rubs. RESPIRATORY: Clear to auscultation. Breath sounds equal bilaterally. No wheezes , rales, or rhonchi. GASTROINTESTINAL: Abdomen soft, non-tender, nondistended.No guarding. MUSCULOSKELETAL: Extremities without clubbing, cyanosis, or edema. No joint tenderness, effusion, or edema noted. No calf tenderness. Negative Homans sign bilaterally. NEUROLOGICAL: Awake and alert. Cranial nerves II through XII intact. Motor and sensory grossly within normal limits. Five out of 5 muscle strength in all muscle groups. Normal speech. Hospital Course 32 years old female admitted with Left facial swelling secondary to dental abscess with failed outpatient therapy. Imaging study shows likely bony infectious complication associated with posterior molar tooth of the left maxilla with small adjacent periosteal or subperiosteal fluid collection and surrounding cellulitic change. Improving. Switch to po clindamycin for [address] pain management switched to Percocet dc IV morphine and IV steroids. Ct NSAIDS pc and ice. Discussed with OMFS, once improved discharged home with antibiotic to have dental extraction outpatient. If worse transfer to another facility. Hypokalemia and hypomagnesemia. Improved Hyperglycemia secondary to steroids. Monitor with ISS. Low risk for DVT Pt Condition on Discharge: Stable Discharge Disposition: Discharge Home Discharge Time: > 30 minutes Discharge Instructions DIET: Follow Instructions for: As Tolerated, No Restrictions Activities you can perform: Regular-No Restrictions Activities to Avoid: Driving Follow up Referrals: Dental - 1 Week Oral Maxillary Surgery - 1 Week PCP Follow-up - 1 Week New Medications: Oxycodone HCl/Acetaminophen (Oxycodone-Acetaminophen 10-325) 10 Mg-325 Mg Tablet 1 TAB PO Q6H PRN for PAIN SCALE 6 TO 10, #20 TAB Continued Medications: Clindamycin (Cleocin) 150 Mg Cap 300 MG PO Q6H for Infection for 10 Days, #80 CAP 0 Refills Ibuprofen (Ibuprofen) 600 Mg Tab 600 MG PO Q8HR PRN for PAIN, #30 TAB 0 Refills Methocarbamol (Robaxin) 500 Mg Tab 500 MG PO QID PRN for MUSCLE SPASM, #20 TAB 0 Refills Bello Solis MD May 27, 2017 10:28
[2017-05-27] MEDS ORDERED: OXYC1TAB36 PO (10:29)
== END 2017-05-27 12:40 | disposition home or self-care (01) | DRG 158 ==
LOC: NEPD 22:55 → NEDA 05-24 04:08 → OBSVTOIN 05-24 05:58 → N05A 05-24 15:00
PROVIDERS: ADMIT Internal Medicine; ATTEND Internal Medicine
PROC: 0C9WXZ0 Drainage of Upper Tooth, External Approach, Single (ICD-10-PCS; principal; 2017-05-24)
DX: K04.7 Periapical abscess without sinus (principal); L03.211 Cellulitis of face; E83.42 Hypomagnesemia; M41.9 Scoliosis, unspecified; K02.9 Dental caries, unspecified; E87.6 Hypokalemia; T38.0X5A Adverse effect of glucocorticoids and synthetic analogues, initial encounter; R73.9 Hyperglycemia, unspecified; Z72.0 Tobacco use; Z88.0 Allergy status to penicillin
CPT/HCPCS: 41800; 70487; 80048; 82948; 83735; 84155; 85025; 96365; 96375; 99283; J0610; J1100; J1650; J2270; J2405; J2920; J2930; J3480; J7030; Q9967

== ENCOUNTER 2017-06-11 18:42 | Emergency (ER) | payer MEDICAID ==
[~2017-06-11] VITALS: Ht 160 cm; Wt 70.0 kg
[~2017-06-11 18:42] MED LIST changes: -NORC5TAB PO; +OXYC1TAB36 PO
[2017-06-11 18:44] VITALS: BP 114/65; PULSE 109; RESP 18; TEMP 99; O2SAT 100
[2017-06-11] MEDS ORDERED: CLINDAMYCIN PHOS 600 MG/4 ML VIAL IM ONE (22:00)
[2017-06-11] MEDS ORDERED: PERC5TAB12 PO (22:46)
[2017-06-11] MEDS ORDERED: CLIN150 PO (22:46)
--- NOTE | 2017-06-11 23:01 | PD ---
HPI Chief Complaint: Oral / Dental Pain or Problem Time Seen by Provider: 20:58 Travel History International Travel<30 days: No Contact w/Intl Traveler<30days: No Traveled to known affect area: No History of Present Illness HPI The patient was seen and examined in the presence of the nurse. This patient complains of dental infection. She has swelling on the left side of her face. Duration 2 days. Severity is moderate. No fever. No active drainage. She was admitted 2 weeks ago with the same thing in the same location. She has a dental appointment in about [address] Cuevas. Symptom severity is moderate PFSH Past Medical History Asthma: No Blood Disorders: No Anxiety: No Depression: No Heart Rhythm Problems: No Cancer: No Cardiovascular Problems: No High Cholesterol: No Chemotherapy: No Chest Pain: No Congestive Heart Failure: No COPD: No Diabetes: No Diminished Hearing: No Endocrine: No Gastrointestinal Disorders: Yes (HYPEREMESIS GRAVIDARUM) Genitourinary: No Hypertension: No Immune Disorder: No Implanted Vascular Access Dvce: No Musculoskeletal: Yes (SCOLIOSIS) Neurologic: No Psychiatric: No Reproductive: Yes (PID) Respiratory: No Immunizations Current: No Radiation Therapy: No Sleep Apnea: No Thyroid Disease: No ?: Not Menopausal: No : 5 Para: 5 Miscarriage: 0 : 0 Past Surgical History Other Surgery: No Social History Alcohol Use: No Tobacco Use: Yes (1 pack per week) Substance Use: No Allergies-Medications (Allergen,Severity, Reaction): Coded Allergies: penicillin G (Unverified Allergy, Severe, A CHILD, 06/11/17) Reported Meds & Prescriptions Reported Meds & Active Scripts Active Percocet (Oxycodone-Acetaminophen) 5-325 mg Tab 1 Tab PO Q6H PRN Cleocin (Clindamycin HCl) 150 Mg Cap 300 Mg PO Q6H 10 Days Review of Systems General / Constitutional: No: Fever HENT: No: Headaches Cardiovascular: No: Chest Pain or Discomfort Respiratory: No: Cough Physical Exam Narrative NECK: Symmetrical appearance, midline trachea. No mass or crepitus. Thyroid without enlargement, tenderness, or mass. SKIN: Focused skin assessment reveals no rash or ulcers. Skin is warm and dry. Palpation shows no induration or nodules. Oral cavity: She has a rotted out molar in the left upper jaw. No drainage or fluctuance of the gingiva Has some left-sided facial swelling without redness warmth or drainage Data Data Last Documented VS Vital Signs Date Time Temp Pulse Resp B/P (MAP) Pulse Ox O2 Delivery O2 Flow Rate FiO2 06/11/17 18:44 99.0 109 18 114/65 (81) 100 Room Air Orders Orders Clindamycin Inj (Cleocin Inj) (06/11/17 22:00) MDM Medical Decision Making Medical Screen Exam Complete: Yes Emergency Medical Condition: Yes Medical Record Reviewed: Yes Differential Diagnosis Facial infection, dental abscess, cellulitis Narrative Course I have reviewed the patient's electronic medical record.I reviewed her admission from 2 weeks ago. I reviewed her CT scan Today she returns with the same problem. Our maxillofacial on-call would not return the call to discuss the case. I am told he does not do dental work. I put a page into Dr. Cuevas but their group would not return the call either I discussed options with the patient. We did repeat extensive workup including labs and CT of the face to look for drainable abscess and then transferred to [place] for that. She really did not want to do it again. She says it is much better than it was when she was admitted 2 weeks ago. She would rather try antibiotics I gave her injection of clindamycin followed by prescription for the same. I gave her pain medication. She is going to call the office of Dr. Cuevas and see if they can buy any chance move her appointment up. She does have an appointment there in 10 days. If she worsens she can always return here but she is not eager to transfer to [place]. Diagnosis Primary Impression: Dental infection Additional Impression: Left facial swelling Additional Instructions: Follow-up with maxillofacial Return if worse The patient was warned about potential sedation for the medications they will receive on prescription. Med/Other Pt SpecificInfo: Prescription(s) given Scripts Oxycodone-Acetaminophen (Percocet) 5-325 mg Tab 1 TAB PO Q6H Y for PAIN, #20 TAB 0 Refills Prov: Chris Thomas MD 06/11/17 Clindamycin (Cleocin) 150 Mg Cap 300 MG PO Q6H for Infection for 10 Days, #80 CAP 0 Refills Prov: Chris Thomas MD 1/29/18 Disposition: 01 DISCHARGE HOME Condition: Stable Chris Thomas MD Jun 11, 2017 23:01
== END 2017-06-11 23:21 | disposition home or self-care (01) ==
LOC: NEPD 18:42
DX: K04.7 Periapical abscess without sinus (principal); R22.0 Localized swelling, mass and lump, head
CPT/HCPCS: 96372

== ENCOUNTER 2017-07-26 02:48 | Emergency (ER) | payer MEDICAID ==
[~2017-07-26] VITALS: Ht 162.6 cm; Wt 70.0 kg
[~2017-07-26 02:48] MED LIST changes: -IBUP-232 PO; -METR-1 PO; -OXYC1TAB36 PO; +PERC5TAB12 PO; -ROBA500T PO
[2017-07-26 02:59] VITALS: BP 122/75; PULSE 102; RESP 16; O2SAT 100
[2017-07-26] MEDS ORDERED: IBUPROFEN 600 MG TAB PO ONE (03:30)
--- NOTE | 2017-07-26 04:23 | PD ---
HPI Chief Complaint: Fall Time Seen by Provider: 03:23 Travel History International Travel<30 days: No Contact w/Intl Traveler<30days: No Traveled to known affect area: No History of Present Illness HPI pt is 32 yr old female who was trying to get up to the attic and fell from a ladder 4th rung and stumbled and hit left abdo and side on wall and floor. PFSH Past Medical History Asthma: No Blood Disorders: No Anxiety: No Depression: No Heart Rhythm Problems: No Cancer: No Cardiovascular Problems: No High Cholesterol: No Chemotherapy: No Chest Pain: No Congestive Heart Failure: No COPD: No Diabetes: No Diminished Hearing: No Endocrine: No Gastrointestinal Disorders: Yes (HYPEREMESIS GRAVIDARUM) Genitourinary: No Hypertension: No Immune Disorder: No Implanted Vascular Access Dvce: No Musculoskeletal: Yes (SCOLIOSIS) Neurologic: No Psychiatric: No Reproductive: Yes (PID) Respiratory: No Immunizations Current: No Radiation Therapy: No Sleep Apnea: No Thyroid Disease: No ?: Not Menopausal: No : 5 Para: 5 Miscarriage: 0 : 0 Past Surgical History Other Surgery: No Social History Alcohol Use: No Tobacco Use: Yes (1 pack per week) Substance Use: No Allergies-Medications (Allergen,Severity, Reaction): Coded Allergies: penicillin G (Unverified Allergy, Severe, A CHILD, 07/26/17) Reported Meds & Prescriptions Reported Meds & Active Scripts Active Ibuprofen 600 Mg Tab 600 Mg PO Q6H PRN Review of Systems Except as stated in HPI: all other systems reviewed are Neg Gastrointestinal: Positive: Abdominal Pain (left abdo area pain ) Musculoskeletal: Positive: Myalgias Physical Exam Narrative GENERAL: non toxic appearing no acute distress , no obvious trauma to body SKIN: Warm and dry. HEAD: Atraumatic. Normocephalic. EYES: Pupils equal and round. No scleral icterus. No injection or drainage. ENT: No nasal bleeding or discharge. Mucous membranes pink and moist. NECK: Trachea midline. No JVD. CARDIOVASCULAR: Regular rate and rhythm. RESPIRATORY: No accessory muscle use. Clear to auscultation. Breath sounds equal bilaterally. GASTROINTESTINAL: Abdomen mild tenderness to left abdo no bruise no hematoma ..., nondistended. Hepatic and splenic margins not palpable. MUSCULOSKELETAL: Extremities without clubbing, cyanosis, or edema. No obvious deformities. NEUROLOGICAL: Awake and alert. No obvious cranial nerve deficits. Motor grossly within normal limits. Five out of 5 muscle strength in the arms and legs. Normal speech. PSYCHIATRIC: Appropriate mood and affect; insight and judgment normal. Data Data Last Documented VS Orders Orders Ibuprofen (Motrin) (07/26/17 03:30) Ed Discharge Order (07/26/17 05:22) [facility] Medical Decision Making Medical Screen Exam Complete: Yes Emergency Medical Condition: Yes Differential Diagnosis trauma to left hip side abdo back other vs contusion vs fracture other Narrative Course motrin . pt feels much better. exam leads me to feel that no indication or mechanism that indicate xrays of hip indicated --> due to radiation vs risk benefit and d/c motrin trial for contusion to hip is current plan Diagnosis Primary Impression: Muscle contusion Scripts Ibuprofen (Ibuprofen) 600 Mg Tab 600 MG PO Q6H Y for Pain/Inflammation, #40 TAB 0 Refills Prov: Isaías Hughes MD 07/26/17 Disposition: 01 DISCHARGE HOME Condition: Good Isaías Hughes MD Jul 26, 2017 04:23
[2017-07-26] MEDS ORDERED: IBUP-232 PO (05:22)
== END 2017-07-26 05:48 | disposition home or self-care (01) ==
LOC: NEPC 02:48
DX: S70.02XA Contusion of left hip, initial encounter (principal); M41.9 Scoliosis, unspecified; F17.200 Nicotine dependence, unspecified, uncomplicated; W11.XXXA Fall on and from ladder, initial encounter; Z88.0 Allergy status to penicillin
CPT/HCPCS: 99283

== ENCOUNTER 2017-08-05 18:19 | Emergency (ER) | payer MEDICAID ==
[~2017-08-05] VITALS: Ht 160 cm; Wt 68.0 kg
[~2017-08-05 18:19] MED LIST changes: -CLIN150 PO; +IBUP-232 PO; -PERC5TAB12 PO
[2017-08-05 18:46] VITALS: BP 135/82; PULSE 116; RESP 18; TEMP 98; O2SAT 100
--- NOTE | 2017-08-05 20:15 | PD ---
HPI Chief Complaint: Headache Time Seen by Provider: 20:05 Travel History International Travel<30 days: No Contact w/Intl Traveler<30days: No Traveled to known affect area: No History of Present Illness HPI 32-year-old black female presents to emergency department stating that she has not felt well today. She's felt rundown, weak some dizziness. She is also had a headache. She has not taking anything for this. She laid down in a car at lunchtime and took a nap. She left work this evening at 6:00 and decided come to the ER to be checked. She denies any persistent dizziness. No fever or chills. No nausea vomiting. No numbness, tingling or weakness. No abdominal pain or urinary symptoms. Symptoms are mild. No alleviating factors. No exacerbating factors. PFSH Past Medical History Asthma: No Blood Disorders: No Anxiety: No Depression: No Heart Rhythm Problems: No Cancer: No Cardiovascular Problems: No High Cholesterol: No Chemotherapy: No Chest Pain: No Congestive Heart Failure: No COPD: No Diabetes: No Diminished Hearing: No Endocrine: No Gastrointestinal Disorders: Yes (HYPEREMESIS GRAVIDARUM) Genitourinary: No Hypertension: No Immune Disorder: No Implanted Vascular Access Dvce: No Musculoskeletal: Yes (SCOLIOSIS) Neurologic: No Psychiatric: No Reproductive: Yes (PID) Respiratory: No Immunizations Current: No Radiation Therapy: No Sleep Apnea: No Thyroid Disease: No Tetanus Vaccination: > 5 Years Influenza Vaccination: Yes ?: Unknown LMP: 06/27/17 Menopausal: No : 5 Para: 5 Miscarriage: 0 : 0 Past Surgical History Surgical History: No Previous Surgery Other Surgery: No Social History Alcohol Use: No Tobacco Use: Yes (1pk q 3 days) Substance Use: No Allergies-Medications (Allergen,Severity, Reaction): Coded Allergies: penicillin G (Unverified Allergy, Severe, A CHILD, 07/26/17) Reported Meds & Prescriptions Reported Meds & Active Scripts Active Ibuprofen 600 Mg Tab 600 Mg PO Q6H PRN Review of Systems Except as stated in HPI: all other systems reviewed are Neg Physical Exam Narrative GENERAL: Well-developed well-nourished no acute distress SKIN: Focused skin assessment warm/dry. HEAD: Atraumatic. Normocephalic. EYES: Pupils equal and round. No scleral icterus. No injection or drainage. ENT: No nasal bleeding or discharge. Mucous membranes pink and moist. NECK: Trachea midline. No JVD. CARDIOVASCULAR: Regular rate and rhythm. No murmur appreciated. RESPIRATORY: No accessory muscle use. Clear to auscultation. Breath sounds equal bilaterally. GASTROINTESTINAL: Abdomen soft, non-tender, nondistended. Hepatic and splenic margins not palpable. MUSCULOSKELETAL: No obvious deformities. No clubbing. No cyanosis. No edema. NEUROLOGICAL: Awake and alert. No obvious cranial nerve deficits. Motor grossly within normal limits. Normal speech. PSYCHIATRIC: Appropriate mood and affect; insight and judgment normal. Data Data Last Documented VS Vital Signs Date Time Temp Pulse Resp B/P (MAP) Pulse Ox O2 Delivery O2 Flow Rate FiO2 08/05/17 20:08 20 99 Room Air 08/05/17 18:46 98.0 116 135/82 (99) [facility] Medical Decision Making Medical Screen Exam Complete: Yes Emergency Medical Condition: No Medical Record Reviewed: Yes Differential Diagnosis MDM: High Differential diagnoses: Pneumonia, bronchitis, URI, influenza, vertigo Narrative Course A medical screening exam was performed: At the time of evaluation the presenting medical condition was determined not to be of an emergent nature. The patient was given the option of receiving additional care, but declined. Patient was given options for additional community resources from which to obtain care. The Patient Has Been advised to seek medical attention for their presenting complaint. The patient has been advised to return to the ER at any time if an emergent condition develops. Diagnosis Primary Impression: Encounter for medical screening examination Condition: Poli Plunkett Aug 05, 2017 20:15
== END 2017-08-05 20:21 | disposition left against medical advice (07) ==
LOC: NEPD 18:19
DX: R51 Headache (principal); R53.1 Weakness; R42 Dizziness and giddiness; M41.9 Scoliosis, unspecified; F17.200 Nicotine dependence, unspecified, uncomplicated
CPT/HCPCS: 99281

== ENCOUNTER 2017-08-16 20:11 | Emergency (ER) | payer MEDICAID | END 2017-08-16 21:25 | disposition left against medical advice (07) | LOC: NED 20:11 | DX: R09.89 Other specified symptoms and signs involving the circulatory and respiratory systems (principal); Z53.21 Procedure and treatment not carried out due to patient leaving prior to being seen by health care provider | CPT/HCPCS: 99281 ==

== ENCOUNTER 2017-09-16 16:33 | Emergency (ER) | payer MEDICAID ==
[~2017-09-16] VITALS: Ht 160 cm; Wt 68.0 kg
[2017-09-16 16:34] VITALS: BP 118/83; PULSE 93; RESP 16; TEMP 97.6; O2SAT 100
--- NOTE | 2017-09-16 16:38 | PD ---
HPI Chief Complaint: Hip Injury Time Seen by Provider: 16:38 Travel History International Travel<30 days: No Contact w/Intl Traveler<30days: No Traveled to known affect area: No History of Present Illness HPI 32-year-old female came to the emergency with history of left hip pain after she tripped and fell yesterday. Patient says that it is getting her to walk or lay on that side. However patient came by herself to the hospital. She says she ambulates but it hurts. She took 600 mg of ibuprofen this morning with minimal relief. Vital signs are stable. She did not injure any other part of her body. PFSH Past Medical History Narrative Medical List of her past medical, surgical, social and family history reviewed from the nursing note. Asthma: No Blood Disorders: No Anxiety: No Depression: No Heart Rhythm Problems: No Cancer: No Cardiovascular Problems: No High Cholesterol: No Chemotherapy: No Chest Pain: No Congestive Heart Failure: No COPD: No Diabetes: No Diminished Hearing: No Endocrine: No Gastrointestinal Disorders: Yes (HYPEREMESIS GRAVIDARUM) Genitourinary: No Hypertension: No Immune Disorder: No Implanted Vascular Access Dvce: No Musculoskeletal: Yes (SCOLIOSIS) Neurologic: No Psychiatric: No Reproductive: Yes (PID) Respiratory: No Immunizations Current: No Radiation Therapy: No Sleep Apnea: No Thyroid Disease: No ?: Not LMP: 09/16/17 Menopausal: No : 5 Para: 5 Miscarriage: 0 : 0 Past Surgical History Other Surgery: No Social History Alcohol Use: No Tobacco Use: Yes (1pk q 3 days) Substance Use: No Allergies-Medications (Allergen,Severity, Reaction): Coded Allergies: penicillin G (Verified Allergy, Severe, A CHILD, 09/16/17) Comments List of her allergies reviewed from the nursing Reported Meds & Prescriptions Reported Meds & Active Scripts Active No Active Prescriptions or Reported Medications Narrative Medication List of her home medications reviewed from the nursing note. Review of Systems Except as stated in HPI: all other systems reviewed are Neg Musculoskeletal: Positive: Pain Physical Exam Narrative GENERAL: Awake, alert, no obvious distress SKIN: Focused skin assessment warm/dry. HEAD: Atraumatic. Normocephalic. EYES: Pupils equal and round. No scleral icterus. No injection or drainage. ENT: No nasal bleeding or discharge. Mucous membranes pink and moist. NECK: Trachea midline. No JVD. CARDIOVASCULAR: Regular rate and rhythm. No murmur appreciated. RESPIRATORY: No accessory muscle use. Clear to auscultation. Breath sounds equal bilaterally. GASTROINTESTINAL: Abdomen soft, non-tender, nondistended. Hepatic and splenic margins not palpable. MUSCULOSKELETAL: No obvious deformities. No clubbing. No cyanosis. No edema. Minimal restricted range of motion at the left hip joint because of the pain NEUROLOGICAL: Awake and alert. No obvious cranial nerve deficits. Motor grossly within normal limits. Normal speech. PSYCHIATRIC: Appropriate mood and affect; insight and judgment normal. Data Data Last Documented VS Orders Orders Hip, Uni(Ap&Lat) W Ap Pelvis (09/16/17 ) Ed Discharge Order (09/16/17 17:22) [facility] Medical Decision Making Medical Screen Exam Complete: Yes Emergency Medical Condition: Yes Medical Record Reviewed: Yes Differential Diagnosis Hip contusion, pelvic fracture, hip fracture Narrative Course 5:04 PM when patient was going to the x-ray she actually walked and I noticed that there was no limp or any antalgic gait. I looked at the x-ray myself and I do not see any obvious fracture. Awaiting for the x-ray report. Patient will be discharged home. Procedures EKG Prior to Arrival: No Diagnosis Primary Impression: Muscle strain of left gluteal region Qualified Codes: S76.012A - Strain of muscle, fascia and tendon of left hip, initial encounter Referrals: [facility] Additional Instructions: Take Advil/Motrin,/ibuprofen for pain. Apply cold compresses alternating with warm compresses for relief. Follow-up with your primary care. Scripts No Active Prescriptions or Reported Meds Disposition: 01 DISCHARGE HOME Condition: Stable Jorje Burger MD September 16, 2017 16:38
--- NOTE | 2017-09-16 17:19 | RADRPT ---
EXAM DATE/TIME: 09/16/2017 16:50 [facility] COMPARISON: No previous studies available for comparison. INDICATIONS : Left hip pain after slipping and falling yesterday. MEDICAL HISTORY : None. SURGICAL HISTORY : None. ENCOUNTER: Initial ACUITY: 2 days PAIN SCORE: 7/10 LOCATION: Left hip. FINDINGS: 3 views of the left hip and pelvis. Bone alignment within normal limits. No evidence of fracture. No evidence of joint narrowing. CONCLUSION: Left hip and pelvis radiographs within normal limits. Yogi Leblanc MD on September 16, 2017 at 17:15 Board Certified Radiologist. This report was verified electronically.
== END 2017-09-16 17:30 | disposition home or self-care (01) ==
LOC: NEPD 16:33
DX: S76.012A Strain of muscle, fascia and tendon of left hip, initial encounter (principal); W01.0XXA Fall on same level from slipping, tripping and stumbling without subsequent striking against object, initial encounter
CPT/HCPCS: 73502; 99283

== ENCOUNTER 2017-09-24 13:21 | Emergency (ER) | payer MEDICAID | END 2017-09-24 14:08 | disposition left against medical advice (07) | LOC: NED 13:21 | DX: Z03.89 Encounter for observation for other suspected diseases and conditions ruled out (principal) | CPT/HCPCS: 99281 ==

== ENCOUNTER 2017-09-25 09:54 | Emergency (ER) | payer MEDICAID ==
[~2017-09-25] VITALS: Ht 160 cm; Wt 73.5 kg
[2017-09-25 10:09] VITALS: BP 117/70; PULSE 98; RESP 16; TEMP 98.8; O2SAT 100
== END 2017-09-25 10:52 | disposition left against medical advice (07) ==
LOC: NED 09:54
DX: Z03.89 Encounter for observation for other suspected diseases and conditions ruled out (principal)
CPT/HCPCS: 99281

== ENCOUNTER 2017-10-22 14:59 | Emergency (ER) | payer MEDICAID ==
[~2017-10-22] VITALS: Ht 160 cm; Wt 80.0 kg
[2017-10-22 15:15] VITALS: BP 127/72; PULSE 87; RESP 16; TEMP 98.2; O2SAT 100
[2017-10-22 15:58] VITALS: RESP 16; O2SAT 97
--- NOTE | 2017-10-22 16:01 | PD ---
HPI Chief Complaint: Chest Pain Time Seen by Provider: 15:48 Travel History International Travel<30 days: No Contact w/Intl Traveler<30days: No Traveled to known affect area: No History of Present Illness HPI Patient comes in complaining of chest tightness, substernal, nonradiating, 6 out of 10, has been intermittently occurring over the past 2 days. Today starting at approximately 1:00 in the afternoon she started having numbness to her left arm and tingling to her left arm region but not extending past her elbow or to her hands. No alleviating or aggravating factors. Patient states that she does not do any type of exertion or heavy lifting at her work, she does clerical type work. Patient denies any associated factors such as fever, rash, vomiting, nausea, diarrhea, cough, runny nose or sore throat. Allergies to penicillin Past medical history significant for hyperemesis gravidarum, PID, scoliosis, , patient smokes about a pack every 3 days of smoking, patient also is on control hormones PFSH Past Medical History Asthma: No Blood Disorders: No Anxiety: No Depression: No Heart Rhythm Problems: No Cancer: No Cardiovascular Problems: No High Cholesterol: No Chemotherapy: No Chest Pain: No Congestive Heart Failure: No COPD: No Diabetes: No Diminished Hearing: No Endocrine: No Gastrointestinal Disorders: Yes (HYPEREMESIS GRAVIDARUM) Genitourinary: No Hypertension: No Immune Disorder: No Implanted Vascular Access Dvce: No Musculoskeletal: Yes (SCOLIOSIS) Neurologic: No Psychiatric: No Reproductive: Yes (PID) Respiratory: No Immunizations Current: No Radiation Therapy: No Sleep Apnea: No Thyroid Disease: No ?: Not Menopausal: No : 5 Para: 5 Miscarriage: 0 : 0 Past Surgical History Other Surgery: No Social History Alcohol Use: No Tobacco Use: Yes (1pk q 3 days) Substance Use: No Allergies-Medications (Allergen,Severity, Reaction): Coded Allergies: penicillin G (Verified Allergy, Severe, A CHILD, 10/22/17) Reported Meds & Prescriptions Reported Meds & Active Scripts Active No Active Prescriptions or Reported Medications Review of Systems Except as stated in HPI: all other systems reviewed are Neg General / Constitutional: No: Fever Eyes: No: Visual changes HENT: No: Headaches Cardiovascular: Positive: Chest Pain or Discomfort, Other (Questionable radiating to her left arm versus stand-alone left arm numbness) Respiratory: No: Shortness of Breath Gastrointestinal: No: Abdominal Pain Genitourinary: No: Dysuria Musculoskeletal: No: Pain Skin: No Rash Neurologic: No: Weakness Psychiatric: No: Depression Endocrine: No: Polydipsia Hematologic/Lymphatic: No: Easy Bruising Physical Exam Narrative GENERAL: Young -[place] female in no acute distress SKIN: Focused skin assessment warm/dry. HEAD: Atraumatic. Normocephalic. EYES: Pupils equal and round. No scleral icterus. No injection or drainage. ENT: No nasal bleeding or discharge. Mucous membranes pink and moist. NECK: Trachea midline. No JVD. CARDIOVASCULAR: Regular rate and rhythm. No murmur appreciated. Strong radial and ulnar pulses as well as good capillary refill time of less than 2 seconds. RESPIRATORY: No accessory muscle use. Clear to auscultation. Breath sounds equal bilaterally. Nonreproducible GASTROINTESTINAL: Abdomen soft, non-tender, nondistended. MUSCULOSKELETAL: No obvious deformities. No clubbing. No cyanosis. No edema. NEUROLOGICAL: Awake and alert. No obvious cranial nerve deficits. Motor grossly within normal limits. Normal speech. PSYCHIATRIC: Appropriate mood and affect; insight and judgment normal. Data Data Last Documented VS Vital Signs Date Time Temp Pulse Resp B/P (MAP) Pulse Ox O2 Delivery O2 Flow Rate FiO2 10/22/17 15:58 16 97 Room Air 10/22/17 15:15 98.2 87 127/72 (90) Orders Orders Electrocardiogram (10/22/17 15:48) B-Type Natriuretic Peptide (10/22/17 15:48) Ckmb (Isoenzyme) Profile (10/22/17 15:48) Complete Blood Count With Diff (10/22/17 15:48) Comprehensive Metabolic Panel (10/22/17 15:48) Prothrombin Time / Inr (Pt) (10/22/17 15:48) Act Partial Throm Time (Ptt) (10/22/17 15:48) Troponin I (10/22/17 15:48) Lipase (10/22/17 15:48) Ecg Monitoring (10/22/17 15:48) Iv Access Insert/Monitor (10/22/17 15:48) Oximetry (10/22/17 15:48) Ct Pulmonary Angiogram (10/22/17 15:48) Us Arm Venous Doppler (10/22/17 15:48) Urinalysis - C+S If Indicated (10/22/17 15:48) Ed Urine Pregnancytest Poc (10/22/17 15:48) Drug Screen, Random Urine (10/22/17 15:48) [facility] Medical Decision Making Medical Screen Exam Complete: Yes Emergency Medical Condition: Yes Medical Record Reviewed: Yes Interpretation(s) EKG shows a normal sinus rhythm, 82 bpm, normal intervals, no evidence of any ST elevation MD pattern at this time Differential Diagnosis Pericardial effusion versus STEMI versus non-STEMI versus DVT versus pulmonary embolus versus radiculopathy Narrative Course Patient is on control plus smokes cigarettes which increases her risk of developing a DVT or PE, patient will be evaluated for both with an ultrasound was wears a CT chest rule out PE, the remainder of the chest pain that she is describing has been ongoing seems atypical for cardiac causes, however for the sake of completeness she will have a delta troponin to rule out. Patient is signed out to incoming physician pending CT chest, ultrasound of left upper extremity and laboratory results Diagnosis Primary Impression: Chest pain Scripts No Active Prescriptions or Reported Meds Disposition: 01 DISCHARGE HOME Condition: Stable Kam Redman MD Oct 22, 2017 16:01
[2017-10-22 16:43] LABS: BILIRUBIN, URINE NEG (NEG); BLOOD, URINE NEG (NEG); GLUCOSE,URINE NEG (NEG); KETONE, URINE NEG (NEG); MUCUS URINE FEW /lpf (OCC); NITRITE,URINE NEG (NEG); SQUAMOUS EPITHELIAL CELL URINE 2 /hpf (0-5); URINE COLOR YELLOW (YELLW/STRAW); URINE LEUKOCYTE ESTERASE TRACE (NEG)
[2017-10-22 16:43] LABS: AUTOMATED NEUTROPHIL # 1.9 TH/MM3 (1.8-7.7); EOSINOPHIL # 0.1 TH/MM3 (0-0.4); EOSINOPHIL % 2.7 % (0.0-4.0); HEMOGLOBIN 10.2 GM/DL (11.6-15.3); LYMPH % 36.8 % (9.0-44.0); LYMPHOCYTE # 1.4 TH/MM3 (1.0-4.8); MEAN CORPUSCULAR HGB CONC 32.8 % (32.0-36.0); MEAN PLATELET VOLUME 6.7 FL (7.0-11.0); MONO % 8.8 % (0.0-8.0); MONOCYTE # 0.3 TH/MM3 (0-0.9); NEUT % 50.7 % (16.0-70.0); PLATELET COUNT 303 TH/MM3 (150-450); RED BLOOD COUNT 4.84 MIL/MM3 (4.00-5.30); RED CELL DISTRIBUTION WIDTH 17.1 % (11.6-17.2); WHITE BLOOD COUNT 3.8 TH/MM3 (4.0-11.0)
[2017-10-22 16:54] LABS: PROTHROMBIN TIME - PATIENT 10.1 SEC (9.8-11.6)
[2017-10-22 17:00] LABS: ALT (GPT) 21 U/L (10-53); AST (GOT) 22 U/L (15-37); BICARBONATE 24.3 MEQ/L (21.0-32.0); BLOOD UREA NITROGEN 9 MG/DL (7-18); CALCIUM 8.7 MG/DL (8.5-10.1); CHLORIDE 104 MEQ/L (98-107); CREATININE 0.87 MG/DL (0.50-1.00); GLOMERULAR FILTRATION RATE 93 ML/MIN (>89); GLUCOSE,RANDOM 80 MG/DL (74-106); SODIUM (NA) 138 MEQ/L (136-145)
[2017-10-22 17:04] LABS: ALKALINE PHOSPHATASE 97 U/L (45-117); TOTAL BILIRUBIN ADULT 0.2 MG/DL (0.2-1.0); TOTAL PROTEIN 8.2 GM/DL (6.4-8.2); TROPONIN I LESS THAN 0.02 NG/ML (0.02-0.05)
[2017-10-22] MEDS ORDERED: ACETAMINOPHEN 325 MG TAB PO ONE (17:30)
--- NOTE | 2017-10-22 18:35 | RADRPT ---
EXAM DATE: 10/22/2017 6:26 PM EDT AGE/SEX: 32 years / Female INDICATIONS: Left arm pain. CLINICAL DATA: This is the patient's initial encounter. Patient reports that signs and symptoms have been present for 1 day and indicates a pain score of 0/10. MEDICAL/SURGICAL HISTORY: . Hyperemesis gravidarum. Pelvic inflammatory disease. . COMPARISON: No prior exams available for comparison. FINDINGS: There is spontaneous flow documented in the brachial, basilic, cephalic, axillary, and subclavian vei ns. The vessels are compressible and augmentation response is documented. No filling defects are se en. The flow is phasic with respiration. Direction of flow in the jugular vein is caudal. CONCLUSION: 1. The study is negative for upper extremity deep venous thrombosis. Electronically signed by: Shreya Jara MD 10/22/2017 6:33 PM EDT
[2017-10-22 19:16] VITALS: BP 112/62; PULSE 77; RESP 16; O2SAT 100
[2017-10-22] MEDS ORDERED: IOHEXOL 350 MG/ML 10 ML VIAL (for RAD DIAG) IVCONTRAST ONE (19:26)
--- NOTE | 2017-10-22 19:32 | EKG ---
Date Performed: 10/22/2017 Time Performed: 15:59:54 PTAGE: 32 years EKG: Sinus rhythm NORMAL ECG No significant change from prior electrocardiogram. DOCTOR: Marcio Damon Interpretating Date/Time 10/22/2017 19:30:29
--- NOTE | 2017-10-22 19:42 | RADRPT ---
EXAM DATE: 10/22/2017 7:32 PM EDT AGE/SEX: 32 years / Female INDICATIONS: Left sided chest pain. CLINICAL DATA: This is the patient's initial encounter. Patient reports that signs and symptoms have been present for 1 day and indicates a pain score of 6/10. MEDICAL/SURGICAL HISTORY: None. . RADIATION DOSE: 12.11 CTDI (mGy) COMPARISON: No prior exams available for comparison. TECHNIQUE: Volumetric scanning was performed using a multi-row detector CT scanner during bolus infu cooper of 60 ml Omnipaque 350 (iohexol) nonionic water-soluble contrast as a single exam dose. The arie a was post processed with a variety of visualization algorithms including full volume maximum intensi ty projection and sliding thin slab reformation. Using automated exposure control and adjustment of the mA and/or kV according to patient size, radiation dose was kept as low as reasonably achievable t o obtain optimal diagnostic quality images. FINDINGS: The lungs are clear without infiltrate, nodule, or mass. There is no pleural effusion. No appreciab le pathological adenopathy is seen within the mediastinum. There are calcifications in the region of the thyroid gland on the right side possibly thyroid nodules are present not adequately characterize d. Thoracolumbar scoliosis is present to a moderate degree is suggested in appearance. CONCLUSION: Unremarkable study except for possible right thyroid nodules. Electronically signed by: Shreya Jara MD 10/22/2017 7:40 PM EDT
--- NOTE | 2017-10-22 21:12 | PD ---
Physical Exam Narrative Patient signed out to me by Dr. Redman. Please see his documentation for complete details. Briefly, patient is a 32 year old female who comes in complaining of chest pain radiating to her left shoulder. She says she has had these chest pains since she was in middle school, but it has never gone to her shoulder. Her coworkers told her to come get checked out. Exam shows no chest wall tenderness. No decreased sensation to the left arm. Data Data Last Documented VS Vital Signs Date Time Temp Pulse Resp B/P (MAP) Pulse Ox O2 Delivery O2 Flow Rate FiO2 10/22/17 19:16 77 16 112/62 (79) 100 Room Air 10/22/17 15:15 98.2 Orders Orders Electrocardiogram (10/22/17 15:48) B-Type Natriuretic Peptide (10/22/17 15:48) Ckmb (Isoenzyme) Profile (10/22/17 15:48) Complete Blood Count With Diff (10/22/17 15:48) Comprehensive Metabolic Panel (10/22/17 15:48) Prothrombin Time / Inr (Pt) (10/22/17 15:48) Act Partial Throm Time (Ptt) (10/22/17 15:48) Troponin I (10/22/17 15:48) Lipase (10/22/17 15:48) Ecg Monitoring (10/22/17 15:48) Iv Access Insert/Monitor (10/22/17 15:48) Oximetry (10/22/17 15:48) Ct Pulmonary Angiogram (10/22/17 15:48) Us Arm Venous Doppler (10/22/17 15:48) Urinalysis - C+S If Indicated (10/22/17 15:48) Ed Urine Pregnancytest Poc (10/22/17 15:48) Drug Screen, Random Urine (10/22/17 15:48) CKMB (10/22/17 16:20) CKMB% (10/22/17 16:20) Acetaminophen (Tylenol) (10/22/17 17:30) Iohexol 350 Inj (Omnipaque 350 Inj) (10/22/17 19:26) Troponin I (10/22/17 19:35) Labs Laboratory Tests Test 10/22/17 16:20 10/22/17 16:25 10/22/17 19:53 White Blood Count 3.8 TH/MM3 Red Blood Count 4.84 MIL/MM3 Hemoglobin 10.2 GM/DL Hematocrit 31.0 % Mean Corpuscular Volume 64.0 FL Mean Corpuscular Hemoglobin 21.0 PG Mean Corpuscular Hemoglobin Concent 32.8 % Red Cell Distribution Width 17.1 % Platelet Count 303 TH/MM3 Mean Platelet Volume 6.7 FL Neutrophils (%) (Auto) 50.7 % Lymphocytes (%) (Auto) 36.8 % Monocytes (%) (Auto) 8.8 % Eosinophils (%) (Auto) 2.7 % Basophils (%) (Auto) 1.0 % Neutrophils # (Auto) 1.9 TH/MM3 Lymphocytes # (Auto) 1.4 TH/MM3 Monocytes # (Auto) 0.3 TH/MM3 Eosinophils # (Auto) 0.1 TH/MM3 Basophils # (Auto) 0.0 TH/MM3 CBC Comment DIFF FINAL Differential Comment Prothrombin Time 10.1 SEC Prothromb Time International Ratio 1.0 RATIO Activated Partial Thromboplast Time 22.2 SEC Blood Urea Nitrogen 9 MG/DL Creatinine 0.87 MG/DL Random Glucose 80 MG/DL Total Protein 8.2 GM/DL Albumin 4.0 GM/DL Calcium Level 8.7 MG/DL Alkaline Phosphatase 97 U/L Aspartate Amino Transf (AST/SGOT) 22 U/L Alanine Aminotransferase (ALT/SGPT) 21 U/L Total Bilirubin 0.2 MG/DL Sodium Level 138 MEQ/L Potassium Level 3.5 MEQ/L Chloride Level 104 MEQ/L Carbon Dioxide Level 24.3 MEQ/L Anion Gap 10 MEQ/L Estimat Glomerular Filtration Rate 93 ML/MIN Total Creatine Kinase 149 U/L Creatine Kinase MB 0.8 NG/ML Troponin I LESS THAN 0.02 NG/ML LESS THAN 0.02 NG/ML B-Type Natriuretic Peptide LESS THAN 2 PG/ML Lipase 193 U/L Urine Color YELLOW Urine Turbidity HAZY Urine pH 8.0 Urine Specific [place] 1.027 Urine Protein TRACE mg/dL Urine Glucose (UA) NEG mg/dL Urine Ketones NEG mg/dL Urine Occult Blood NEG Urine Nitrite NEG Urine Bilirubin NEG Urine Urobilinogen LESS THAN 2.0 MG/DL Urine Leukocyte Esterase TRACE Urine RBC 1 /hpf Urine WBC 1 /hpf Urine Squamous Epithelial Cells 2 /hpf Urine Mucus FEW /lpf Microscopic Urinalysis Comment CULT NOT INDICATED Urine Opiates Screen NEG Urine Barbiturates Screen NEG Urine Amphetamines Screen NEG Urine Benzodiazepines Screen NEG Urine Cocaine Screen NEG Urine Cannabinoids Screen NEG MDM Supervised Visit with [facility]: No Narrative Course Labs show no acute abnormalities. Second troponin is negative. CTA chest shows no acute abnormalities. Patient informed of thyroid nodules and advised to follow up with her doctor. Last 24 hours Impressions Upper Extremity Ultrasound 10/22/17 1548 Signed Impressions: CONCLUSION: 1. The study is negative for upper extremity deep venous thrombosis. CT Angiography 10/22/17 1548 Signed Impressions: CONCLUSION: Unremarkable study except for possible right thyroid nodules. Patient advised to try Ibuprofen or Naproxen for her pain. Advised to follow up with her PCP and cardiology. Advised to return at any time for any worsening symptoms. Diagnosis Primary Impression: Chest pain Referrals: Marcus Andres MD call for appointment Patient Instructions: Chest Pain (ED), General Instructions Additional Instruction: Follow up with cardiology. Take Ibuprofen or naproxen for pain. Return to the ED as needed for any worsening symptoms. Your CT showed nodules on your thyroid. Follow up with your primary doctor for further testing on this. Scripts No Active Prescriptions or Reported Meds Disposition: 01 DISCHARGE HOME Condition: Stable Naheed Christianson MD Oct 22, 2017 21:12
[2017-10-22 21:20] VITALS: BP 148/93
== END 2017-10-22 21:33 | disposition home or self-care (01) ==
LOC: NEPD 14:59
DX: R07.89 Other chest pain (principal); F17.210 Nicotine dependence, cigarettes, uncomplicated
CPT/HCPCS: 71275; 80053; 80307; 81001; 82550; 82552; 83690; 83880; 84484; 84703; 85025; 85610; 85730; 93005; 93971; 99285; Q9967